=== PATIENT | female | born 1980 | race Caucasian/White ===

== ENCOUNTER 2016-12-18 14:32 | Emergency (ER) | payer OTHER ==
[2016-12-18 14:49] VITALS: BP 112/84
--- NOTE | 2016-12-18 15:11 | UC ---
Palpitation/Dysrhythmia HP - HPI Summary HPI Summary: 36 yo female with a 3 day hx of progressively worsening palpitations Has a skipped beat that makes her take a deep breath in no f/c no URI symptoms no SOB no wt changes no smoking/ETOH/no caffiene - History of Current Complaint Chief Complaint: UCChestPain Stated Complaint: CHEST DISCOMFORT Time Seen by Provider: 12/18/16 14:51 Hx Obtained From: Patient Hx Last Menstrual Period: Thanksgiving Onset/Duration: Sudden Onset, Lasting Minutes - seconds Timing: Intermittent Episodes Lasting: - seconds Severity Initially: Moderate Severity Currently: None Pain Intensity: 0 Pain Scale Used: 0-10 Numeric Character: Skipped Beats Aggravating Factor(s): Nothing Alleviating Factor(s): Nothing - Allergy/Home Medications Allergies/Adverse Reactions: Allergies Allergy/AdvReac Type Severity Reaction Status Date / Time Azithromycin [From Zithromax] Allergy Vomiting Verified 07/02/16 19:42 Erythromycin Allergy Vomiting Verified 07/02/16 19:42 PMH/Surg Hx/FS Hx/Imm Hx Previously Healthy: Yes Endocrine History Of: Denies: Diabetes, Thyroid Disease Cardiovascular History Of: Denies: Cardiac Disorders, Hypertension, Pacemaker/ICD Respiratory History Of: Denies: COPD, Asthma GI/ History Of: Denies: Ulcer - Surgical History Surgical History: Yes Surgery Procedure, Year, and Place: - Family History Known Family History: Positive: Hypertension Negative: Cardiac Disease, Diabetes - Social History Alcohol Use: Rare Substance Use Type: None Smoking Status (MU): Never Smoked Tobacco Have You Smoked in the Last Year: No - Immunization History Hx Tetanus, Diphtheria Vaccination: Yes Vaccination Up to Date: Yes Review of Systems Constitutional: Negative Skin: Negative Eyes: Negative ENT: Negative Respiratory: Negative Cardiovascular: Palpitations Gastrointestinal: Negative Genitourinary: Negative Motor: Negative Neurovascular: Negative Musculoskeletal: Negative Neurological: Negative Psychological: Negative All Other Systems Reviewed And Are Negative: Yes Physical Exam Triage Information Reviewed: Yes Appearance: Well-Appearing, No Pain Distress, Well-Nourished Vital Signs: Initial Vital Signs Temp 97.6 F 12/18/16 14:40 Pulse 93 12/18/16 14:40 Resp 16 12/18/16 14:40 BP 112/84 12/18/16 14:40 Pulse Ox 99 12/18/16 14:40 Vital Signs Reviewed: Yes Eyes: Positive: Conjunctiva Clear ENT: Positive: Hearing grossly normal, Pharynx normal, TMs normal. Negative: Nasal congestion, Nasal drainage, Tonsillar exudate, Trismus, Muffled/hoarse voice Neck: Positive: Supple, Nontender, No Lymphadenopathy Respiratory: Positive: Chest non-tender, Lungs clear, Normal breath sounds, No respiratory distress Cardiovascular: Positive: RRR, No Murmur Abdomen Description: Positive: Nontender, No Organomegaly, Soft. Negative: CVA Tenderness (R), CVA Tenderness (L) Musculoskeletal: Positive: Strength Intact, ROM Intact Neurological: Positive: Alert Psychological Exam: Normal Skin Exam: Normal Diagnostics - EKG Cardiac Rate: NL Cardiac Rhythm: Sinus: Normal Ectopy: None ST Segment: Non-Specific Palpitations Course/Dx - Differential Dx/Diagnosis Provider Diagnoses: palpitations Discharge - Discharge Plan Condition: Stable Disposition: HOME Patient Education Materials: Palpitations (ED) Referrals: Chen Cisneros PA [Primary Care Provider] - 4 Days Additional Instructions: recheck for new or worsening symptoms
--- NOTE | 2016-12-18 15:28 | RAD ---
INDICATION: Palpitations, chest discomfort LEFT upper chest. COMPARISON: None. TECHNIQUE: Dual energy PA and routine lateral views of the chest were obtained. REPORT: Clear lungs and pleural spaces. Negative for pneumothorax. The heart, pulmonary vasculature, and mediastinal contours are unremarkable. Unremarkable osseous structures and soft tissue contours accounting for body habitus. IMPRESSION: No evidence for acute intrathoracic disease.
[2016-12-18 18:48] LABS: Hematocrit 38 % (35-47); Hemoglobin 12.9 g/dl (12.0-16.0); Mean Corpuscular HGB Conc 34 g/dl (31-36); Mean Corpuscular Hemoglobin 30 pg (27-31); Mean Corpuscular Volume 88 fL (80-97); Mean Platelet Volume 8 um3 (7.4-10.4); Red Blood Count 4.38 10^6/ul (4.0-5.4); Red Cell Distribution Width 14 % (10.5-15); White Blood Count 7.5 10^3/ul (3.5-10.8)
[2016-12-18 19:02] LABS: BUN/Creatinine Ratio 23.3 (8-20); Calcium 9.4 mg/dL (8.6-10.3); EGFR African American 115.4 (>60); EGFR Non-African American 89.7 (>60); Potassium 3.6 mmol/L (3.5-5.0)
[2016-12-18 19:07] LABS: TSH (Thyroid Stimulating Horm) 1.53 mcIU/mL (0.34-5.60)
== END 2016-12-18 15:45 | disposition home or self-care (01) ==
LOC: UCEAST 14:32
DX: R00.2 Palpitations (principal); Z88.1 Allergy status to other antibiotic agents
CPT/HCPCS: 36415; 71020; 80048; 84443; 85025; 93005; 99211; G0463

== ENCOUNTER 2017-06-25 20:54 | Emergency (ER) | payer OTHER ==
--- NOTE | 2017-06-25 21:16 | UC ---
Skin Complaint HPI - HPI Summary HPI Summary: 37 year old female presents with complains of rash on the right side of her face and chest after sitting in the sun last night. - History of Current Complaint Time Seen by Provider: 06/25/17 21:12 Stated Complaint: RASH Hx Last Menstrual Period: Thanksgiving - Allergy/Home Medications Allergies/Adverse Reactions: Allergies Allergy/AdvReac Type Severity Reaction Status Date / Time Azithromycin [From Zithromax] Allergy Vomiting Verified 06/25/17 21:20 Erythromycin Allergy Vomiting Verified 06/25/17 21:20 Home Medications: Home Medications Control Pill 1 tab PO DAILY 06/25/17 [History] Review of Systems Constitutional: Negative Skin: Rash Eyes: Negative ENT: Negative Respiratory: Negative Cardiovascular: Negative Gastrointestinal: Negative Genitourinary: Negative Motor: Negative Neurovascular: Negative Musculoskeletal: Negative Neurological: Negative Psychological: Negative All Other Systems Reviewed And Are Negative: Yes PMH/Surg Hx/FS Hx/Imm Hx - Surgical History Surgical History: Yes Surgery Procedure, Year, and Place: - Family History Known Family History: Positive: Hypertension Negative: Cardiac Disease, Diabetes - Social History Alcohol Use: Rare Substance Use Type: None Smoking Status (MU): Never Smoked Tobacco Have You Smoked in the Last Year: No - Immunization History Hx Tetanus, Diphtheria Vaccination: Yes Vaccination Up to Date: Yes Physical Exam Triage Information Reviewed: Yes Eye Exam: Normal ENT Exam: Normal Dental Exam: Normal Neck exam: Normal Neck: Positive: 1 Respiratory Exam: Normal Cardiovascular Exam: Normal Abdominal Exam: Normal Musculoskeletal Exam: Normal Neurological Exam: Normal Psychological Exam: Normal Skin Exam: Normal Skin: Positive: rashes - right side face/chest Course/Dx - Diagnoses Provider Diagnoses: rash. contact dermatitis Discharge - Discharge Plan Condition: Stable Disposition: HOME Prescriptions: Methylprednisolone [Medrol Dosepak 4 MG*] 4 mg PO .SEE SINTIA INSTRUCTION #1 packet Triamcinolone 0.1% CREAM (NF) [Kenalog 0.1% Cream (NF)] 1 applic .SEE ORDER TID #1 tube Patient Education Materials: Acute Rash (ED) Referrals: Chen Cisneros PA [Primary Care Provider] -
[2017-06-25] MEDS ORDERED: predniSONE TAB* 20 MG PO ONE (21:17)
[2017-06-25] MEDS ORDERED: LoraTADine TAB(NF) 10 MG TAB (AUTOSUB to CETIRIZINE) PO ONE (21:17)
== END 2017-06-25 21:27 | disposition home or self-care (01) ==
LOC: UCEAST 20:54
DX: L25.9 Unspecified contact dermatitis, unspecified cause (principal); Z88.1 Allergy status to other antibiotic agents
CPT/HCPCS: 99212; A9270-GY; G0463

== ENCOUNTER 2017-08-10 17:33 | Emergency (ER) | payer OTHER ==
[2017-08-10 17:55] VITALS: BP 151/83
[2017-08-10] MEDS ORDERED: Ondansetron ODT TAB* 4 MG PO ONE (18:57)
--- NOTE | 2017-08-10 18:57 | UC ---
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 - History of Current Complaint Chief Complaint: UCAbdominalPain Stated Complaint: COUGH,COLD,STOMACH PAIN Time Seen by Provider: 08/10/17 18:45 Hx Obtained From: Patient Hx Last Menstrual Period: 07/21/17 ?: No Onset/Duration: Sudden Onset, Lasting Days - 1 Timing: Constant Severity Initially: Mild Severity Currently: Moderate Location: Diffuse Radiates: No Character: Cramping Aggravating Factor(s): Food Alleviating Factor(s): Nothing Associated Signs and Symptoms: Positive: Cough, Nausea, Diarrhea Allergies/Adverse Reactions: Allergies Allergy/AdvReac Type Severity Reaction Status Date / Time Azithromycin [From Zithromax] Allergy Vomiting Verified 08/10/17 17:55 Erythromycin Allergy Vomiting Verified 08/10/17 17:55 Metoprolol Allergy Abdominal Verified 08/10/17 17:55 Pain PMH/Surg Hx/FS Hx/Imm Hx Previously Healthy: Yes - Surgical History Surgical History: Yes Surgery Procedure, Year, and Place: - Family History Known Family History: Positive: Hypertension Negative: Cardiac Disease, Diabetes - Social History Occupation: Employed Full-time Lives: With Family Alcohol Use: Rare Substance Use Type: None Smoking Status (MU): Never Smoked Tobacco Have You Smoked in the Last Year: No - Immunization History Hx Tetanus, Diphtheria Vaccination: Yes Vaccination Up to Date: Yes Review of Systems Constitutional: Negative, Fatigue Skin: Negative Eyes: Negative ENT: Nasal Discharge, Sinus Congestion Respiratory: Cough Cardiovascular: Negative Gastrointestinal: Diarrhea, Nausea Genitourinary: Negative Motor: Negative Neurovascular: Negative Musculoskeletal: Negative Neurological: Negative Psychological: Negative Is Patient Immunocompromised?: No All Other Systems Reviewed And Are Negative: Yes Physical Exam Triage Information Reviewed: Yes Appearance: Well-Nourished, Ill-Appearing - mild, Pain Distress - mild Vital Signs: Initial Vital Signs Temp 98.1 F 08/10/17 17:47 Pulse 100 08/10/17 17:47 Resp 18 08/10/17 17:47 BP 151/83 08/10/17 17:47 Pulse Ox 100 08/10/17 17:47 Vital Signs Reviewed: Yes Eye Exam: Normal Eyes: Positive: Conjunctiva Clear ENT Exam: Normal ENT: Positive: Normal ENT inspection, Hearing grossly normal, Nasal congestion, TMs normal. Negative: Nasal drainage, Tonsillar swelling, Tonsillar exudate, Trismus, Muffled/hoarse voice Neck exam: Normal Neck: Positive: Supple, Nontender Respiratory Exam: Normal Respiratory: Positive: Chest non-tender, Lungs clear, Normal breath sounds, No respiratory distress, No accessory muscle use Cardiovascular Exam: Normal Cardiovascular: Positive: RRR, No Murmur, Pulses Normal, Brisk Capillary Refill Abdominal Exam: Normal Abdomen Description: Positive: No Organomegaly, Soft, Other: - difuse discomfort. Negative: CVA Tenderness (R), CVA Tenderness (L) Bowel Sounds: Positive: Hyperactive Musculoskeletal Exam: Normal Musculoskeletal: Positive: Strength Intact, ROM Intact, No Edema Neurological Exam: Normal Neurological: Positive: Alert, Muscle Tone Normal Psychological Exam: Normal Psychological: Positive: Normal Response To Family Skin Exam: Normal Abd Pain Female Course/Dx - Course Course Of Treatment: clear liquid diet advance slowly, rest follow with pcp for blood pressure recheck or acute illness issues - Differential Dx/Diagnosis Differential Diagnosis: Appendicitis, Gall Bladder Disease, Irritable Bowel Syndrome, Other - illness Provider Diagnoses: viral syndrome, high blood pressure without dx of hypertension Discharge - Discharge Plan Condition: Stable Disposition: HOME Prescriptions: Ondansetron ODT TAB* [Zofran 4 MG Odt TAB*] 4 mg PO Q6H PRN #12 tab.odt PRN Reason: nausea/vomiting Patient Education Materials: Viral Syndrome (ED), Clear Liquid Diet (ED), Upper Respiratory Infection (ED), Acute Nausea and Vomiting (ED), Hypertension ( ED) Forms: *Work Release Referrals: Chen Cisneros PA [Primary Care Provider] - If Needed
== END 2017-08-10 19:18 | disposition home or self-care (01) ==
LOC: UCEAST 17:33
DX: B34.9 Viral infection, unspecified (principal); Z88.8 Allergy status to other drugs, medicaments and biological substances; R03.0 Elevated blood-pressure reading, without diagnosis of hypertension
CPT/HCPCS: 99212; A9270-GY; G0463

== ENCOUNTER 2018-04-03 14:37 | Emergency (ER) | payer OTHER ==
--- OUTSIDE RECORDS SUMMARY | 2018-04-03 14:44 | XMS REPORT ---
:1980 External Reference #:[id number] Author Organization [facility] Address [address], [address] [place] [address] Phone [phone] Care Team Providers Name Role Phone Jaylin Cisneros RPAC Care Team Information Apron Operator Unavailable Jaylin Cisneros RPAC Primary Care Physician Unavailable Payers Type Date Identification Numbers Payment Provider Subscriber Commercial Effective: Policy Number: [facility] Анна Ledezma 2009 [id number] PayID: [id number] [address] [place] [address] Medicaid Policy Number: [id number] Medicaid Анна Ledezma Group Name: 1 1 [address] PayID: [id number] [place] [address] Problems Date Description Provider Status Onset: 03/15/2014 Cervical disc disorder SUSANNE Barrios Active Note: MRI 2013 Onset: 07/21/2013 Palpitations SUSANNE Barrios Active Note: PAC/PVC 2012 Onset: 07/24/2011 Premenstrual tension syndrome SUSANNE Barrios Active Onset: 03/10/2017 Premature ovarian failure SUSANNE Barrios Active Note: noted 2016 Onset: 01/22/2018 Premenstrual dysphoric disorder SUSANNE Barrios Active Onset: 01/22/2018 Iliotibial band friction syndrome SUSANNE Barrios Active Onset: 01/22/2018 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 Onset: 11/07/2003 Contusion of finger Resolved Resolved: 03/06/2016 Onset: 11/07/2003 Contusion of hand Resolved Resolved: 03/06/2016 Family History Date Family Member(s) Problem(s) Comments Father Rheumatoid Arthritis Mother Hypertension Mother Anxiety First Sister PCOS First Sister Anxiety Paternal Grandmother Hypertension Maternal Grandmother Hypertension Maternal Grandmother Anxiety Social History Type Date Description Comments Lives With Son Diet Healthy, Well Balanced Occupation Sales ETOH Use Occasionally consumes alcohol Smoking Patient has never smoked Allergies, Adverse Reactions, Alerts Date Description Reaction Status Severity Comments 01/12/2015 Azithromycin DYSPEPSIA active 12/20/2012 Buspirone Hyperactivity active 12/20/2012 Citalopram Worsens Depression active 12/20/2012 Macrolides And Ketolides Nausea active 08/12/2017 Metoprolol diarrhea active Medications Medication Date Status Form Strength Qnty SIG Indications Ordering Provider Escitalopram 02/24 Active Tablets 5mg 30tab 1/2 tab by Miguel s mouth Cummings, every day M.D. for 10 days then increase to 1 tab po daily Multivitamin Women 10/23 Active Tablets 1 a day Malathi Cummings Ibuprofen 10/23 Active Capsules 200mg as needed Miguel Malathi Cummings Meloxicam 00 Active Tablets 15mg 1 tablet Villagonza /0000 daily. Gordo perez DPM Nissa 07/31 Hx Tablets 0.35mg 28tab 1 tab by Miguel s mouth Cummings, - every day, M.D. 02/09 or progestero ne only ocp Metoprolol 07/03 Hx Tablets 25mg 30tab 1/2 tab by I10 Miguel Succinate ER /2016 ER 24HR s mouth Cummings, - every day M.D. 08/12 Penicillin V 06/26 Hx Tablets 500mg 30tab 1 tab by A38.9 Miguel Potassium s mouth Cummings, - three M.D. 07/07 times a day Lessina 05/21 Hx Tablets 0.1-20mg- 28tab 1 tab by N95.8 mcg s mouth Cummings, - every day M.D. 06/28 No Active 03/25 Hx Unknown Medications /2016 - 03/25 Ortho Tri-Cyclen 03/25 Hx Tablets 0.18/0.21 90tab 1 tab by N95.8 Ventura Lo 5/0.25 s mouth Litvin, - mg-25 mcg every day M.D. 05/21 No Active 02/13 Hx Unknown Medications /2016 - 02/13 Amphetamine-Dextro 02/13 Hx Tablets 5mg 30tab 1 tab by R41.840 Miguel amphetamine s mouth prn Cummings, - M.D. 03/25 No Active 04/11 Hx Unknown Medications - 04/11 Gabapentin 04/11 Hx Capsules 100mg 60cap take 1 to 723.1 Deanna /2014 s 2 capsules Schuster, - by mouth M.D. 02/13 at bedtime for neck pain Cyclobenzaprine Hx Tablets 10mg 90tab 1 by mouth Landen, HCL /0000 s three Deanna, - times a MD 04/11 day as needed Oxycodone/Acetamin Hx Tablets 5-325mg 30tab one tablet Schuster, ophen /0000 s by mouth Deanna, - every 6 MD 04/11 hours needed for pain Reference #: [id number] Methylprednisolone Hx Tablets 4mg start 6 Unknown /0000 tabs on - day one 06/29 decrease by 1 tab each day until gone Triamcinolone Hx Cream 0.1% apply to Unknown Acetonide /0000 irritated areas three times a day as needed. do not use on face or pelvic areas Immunizations CPT Code Status Date Vaccine Reaction Lot # [id number] Given 09/18/2017 Influenza Virus Vaccine received at [facility]/Noti Quadrivalent Iiv4 Split Preser Free Id Vital Signs Date Vital Result Comment 03/05/2018 BP Systolic Sitting Right Arm 124 mmHg BP Diastolic Sitting Right Arm 86 mmHg Heart Rate 82 /min reg Respiratory Rate 15 /min Height 65 inches 5'5" Weight 224.00 lb BMI (Body Mass Index) 37.3 kg/m2 BSA (Body Surface Area) 2.08 m2 [place] body weight in kilograms 57 O2 % BldC Oximetry 98 % ra 01/22/2018 BP Systolic Sitting Right Arm 134 mmHg BP Diastolic Sitting Right Arm 78 mmHg Heart Rate 73 /min Height 65 inches 5'5" Weight 221.00 lb BMI (Body Mass Index) 36.8 kg/m2 BSA (Body Surface Area) 2.06 m2 [place] body weight in kilograms 57 O2 % BldC Oximetry 98 % 10/23/2017 BP Systolic Sitting Right Arm 122 mmHg BP Diastolic Sitting Right Arm 82 mmHg Heart Rate 80 /min Height 65 inches 5'5" Weight 225.00 lb BMI (Body Mass Index) 37.4 kg/m2 BSA (Body Surface Area) 2.08 m2 [place] body weight in kilograms 57 O2 % BldC Oximetry 97 % 07/24/2017 BP Systolic Sitting Right Arm 136 mmHg BP Diastolic Sitting Right Arm 88 mmHg Heart Rate 77 /min Respiratory Rate 18 /min Height 65 inches 5'5" Weight 227.00 lb BMI (Body Mass Index) 37.8 kg/m2 BSA (Body Surface Area) 2.09 m2 [place] body weight in kilograms 57 O2 % BldC Oximetry 97 % 07/03/2017 BP Systolic Sitting Left Arm 140 mmHg repeat 146/98 BP Diastolic Sitting Left Arm 95 mmHg repeat 146/98 Heart Rate 94 /min 98 Respiratory Rate 16 /min Height 65 inches 5'5" Weight 229.38 lb BMI (Body Mass Index) 38.2 kg/m2 BSA (Body Surface Area) 2.10 m2 [place] body weight in kilograms 57 06/26/2017 BP Systolic Sitting Right Arm 140 mmHg BP Diastolic Sitting Right Arm 100 mmHg Body Temperature 99.3 F Heart Rate 91 /min Respiratory Rate 20 /min Height 65 inches 5'5" Weight 227.00 lb BMI (Body Mass Index) 37.8 kg/m2 BSA (Body Surface Area) 2.09 m2 [place] body weight in kilograms 57 O2 % BldC Oximetry 98 % 03/25/2017 BP Systolic 122 mmHg BP Diastolic 70 mmHg Height 65 inches 5'5" Weight 228.00 lb BMI (Body Mass Index) 37.9 kg/m2 BSA (Body Surface Area) 2.09 m2 [place] body weight in kilograms 57 02/13/2017 BP Systolic Sitting Right Arm 128 mmHg BP Diastolic Sitting Right Arm 70 mmHg Height 65 inches 5'5" Weight 226.25 lb BMI (Body Mass Index) 37.6 kg/m2 BSA (Body Surface Area) 2.08 m2 04/11/2015 Height 65 inches 5'5" Weight 217.25 lb BMI (Body Mass Index) 36.1 kg/m2 BSA (Body Surface Area) 2.05 m2 01/12/2015 BP Systolic 126 mmHg BP Diastolic 76 mmHg Weight 218.00 lb 09/29/2014 BP Systolic 132 mmHg BP Diastolic 70 mmHg Height 66 inches 5'6" Weight 219.00 lb 10/26/2013 BP Systolic 122 mmHg BP Diastolic 68 mmHg Height 66 inches 5'6" Weight 204.00 lb 06/30/2013 BP Systolic 130 mmHg BP Diastolic 74 mmHg Height 66 inches 5'6" Weight 200.00 lb 04/28/2013 BP Systolic 118 mmHg BP Diastolic 70 mmHg Height 66 inches 5'6" Weight 200.00 lb 12/20/2012 BP Systolic 130 mmHg BP Diastolic 70 mmHg Height 66 inches 5'6" Weight 214.00 lb 07/24/2011 BP Systolic 110 mmHg BP Diastolic 70 mmHg Height 66 inches 5'6" Weight 197.00 lb 07/18/2011 BP Systolic 112 mmHg BP Diastolic 70 mmHg Height 65 inches 5'5" Weight 198.00 lb Results Test Date Test Result H/L Range Note Laboratory test 06/26/2017 Throat Strep Screen NO BETA STREPTOC 1, 2 finding <SEE NOTE> Laboratory test 02/27/2017 Testosterone 33.59 ng/dL 8-60 finding Estradiol <40 pg/mL 3 Follicle Stimulating Hormone 64.3 mIU/mL 4 Estradiol, Confirmatory, S 11 pg/mL 5 Laboratory test finding 02/13/2017 Prolactin 7.9 ng/mL 6, 7 Glycohemoglobin A1c 02/13/2017 Glycohemoglobin (A1c) 5.5 % 4.2-6.3 6, 8 eAG 111 mg/dL 6 Comprehensive Metabolic Panel 02/13/2017 Glucose 83 mg/dL 74-106 6 BUN 15 mg/dL 7-18 6 Creatinine 0.8 mg/dL 0.6-1.3 6 Glom Filtration Rate, Estimate >60 mL/min >60 6 If >60 mL/min >60 6, 9 BUN/Creat 18.7 ratio 6 Sodium 141 mmol/L 136-145 6 Potassium 4.0 mmol/L 3.5-5.1 6 Chloride 107 mmol/L 98-107 6 Carbon Dioxide 26 mmol/L 21-32 6 Anion Gap 8 mEq/L 8-16 6 Calcium 9.0 mg/dL 8.5-10.1 6 Total Protein 8.1 g/dL 6.4-8.2 6 Albumin 4.0 g/dL 3.4-5.0 6 Globulin 4.1 g/dL 1.9-4.3 6 Alb/Glob 1.0 ratio 6 Bilirubin,Total 0.9 mg/dL 0.2-1.0 6 Sgot/Ast 21 U/L 15-37 6 SGPT/Alt 33 U/L 12-78 6 Alkaline Phosphatase 84 U/L 45-117 6 Laboratory test finding 02/13/2017 FSH 62.9 mIU/mL 6, 10 Basic Metabolic Panel 12/18/2016 Sodium 140 mmol/L 133-145 Potassium 3.6 mmol/L 3.5-5.0 Chloride 105 mmol/L 101-111 Co2 Carbon Dioxide 28 mmol/L 22-32 Anion Gap 7 mmol/L 2-11 Glucose 104 mg/dL High 70-100 Blood Urea Nitrogen 17 mg/dL 6-24 Creatinine 0.73 mg/dL 0.51-0.95 BUN/Creatinine Ratio 23.3 High 8-20 Calcium 9.4 mg/dL 8.6-10.3 Egfr Non- 89.7 >60 Egfr 115.4 >60 11 Laboratory test finding 12/18/2016 TSH (Thyroid Stimulating 1.53 mcIU/mL 0.34-5.60 Horm) CBC Auto Diff 12/18/2016 White Blood Count 7.5 10^3/uL 3.5-10.8 Red Blood Count 4.38 10^6/uL 4.0-5.4 Hemoglobin 12.9 g/dL 12.0-16.0 Hematocrit 38 % 35-47 Mean Corpuscular Volume 88 fL 80-97 Mean Corpuscular Hemoglobin 30 pg 27-31 Mean Corpuscular HGB Conc 34 g/dL 31-36 Red Cell Distribution Width 14 % 10.5-15 Platelet Count 260 10^3/uL 150-450 Mean Platelet Volume 8 um3 7.4-10.4 Abs Neutrophils 4.5 10^3/uL 1.5-7.7 Abs Lymphocytes 2.2 10^3/uL 1.0-4.8 Abs Monocytes 0.6 10^3/uL 0-0.8 Abs Eosinophils 0.1 10^3/uL 0-0.6 Abs Basophils 0 10^3/uL 0-0.2 Abs Nucleated RBC 0.01 10^3/uL Granulocyte % 59.7 % 38-83 Lymphocyte % 29.5 % 25-47 Monocyte % 8.5 % 1-9 Eosinophil % 1.7 % 0-6 Basophil % 0.6 % 0-2 Nucleated Red Blood Cells % 0.1 Laboratory test 09/19/2015 Throat Beta Strep SEE RESULT BELOW 12 finding Culture Laboratory test 04/11/2015 TSH Reflex FT4 1.34 uIU/mL 0.36-3.74 13 finding and/or FT3 C-Reactive Protein,Quant < 2.9 mg/L <3.0 Sedimentation Rate 10 mm/hr 0-20 CBS W/Automated Diff 04/11/2015 White Blood Count 6.7 K/uL 3.1-10.7 Red Blood Count 4.12 M/uL 3.90-5.40 Hemoglobin 12.9 gm/dL 11.6-15.8 Hematocrit 38.1 % 36.0-46.1 Mean Cell Volume 92.5 fl 80.9-99.0 Mean Corpuscular HGB 31.3 pg 25.9-32.7 Mean Corpuscular HGB Conc 33.9 g/dL 30.8-34.3 Platelet Count 323 K/uL 155-360 Red Cell Distri Width SD 44.1 fl 3-47 Red Cell Distri Width %CV 13.2 % 11.7-14.4 Mean Platelet Volume 10.2 fL 8.9-12.4 Neut% 51.5 % 40.4-72.8 Lymph % 37.7 % 17.0-46.1 Graham % 9.1 % 4.3-13.2 Eo% 1.3 % 0.0-6.6 Bas% 0.4 % 0.0-1.1 Neut# 3.45 K/uL 1.0-7.0 Lymph # 2.53 K/uL 1.8-7.0 Graham # 0.61 K/uL 0.3-0.9 Eos # 0.09 K/uL 0.0-0.5 Baso # 0.03 K/uL 0.0-0.1 Laboratory test finding 02/08/2015 C. difficile Amplified Dna (See Note) 14, 15 O P: Giardia/Cryptospor Screen (See Note) 14, 16 Stool Culture (See Note) 14, 17 Stool For Blood 02/08/2015 Stool Occult Blood (See Note) 14, 18 Throat-Beta Strept 10/21/2013 Throat Beta Strep (See Note) 19 Culture Laboratory test finding 06/28/2013 Magnesium 1.9 mg/dL 1.7-2.6 TSH (Thyroid Stimulating Horm) 2.38 miu/mL 0.34-5.60 Troponin I 0 ng/mL 0-0.06 20 CBC Auto Diff 06/28/2013 Abs Basophils 0.1 10^3/uL 0-0.2 Abs Eosinophils 0.1 10^3/uL 0-0.6 Abs Lymphocytes 2.6 10^3/uL 1.0-4.8 Abs Monocytes 0.7 10^3/uL 0-0.8 Abs Neutrophils 4.5 10^3/uL 1.5-7.7 Abs Nucleated RBC 0 10^3/uL Basophil % 1.0 % 0-2 Eosinophil % 1.3 % 0-6 Granulocyte % 55.5 % 38-83 Hematocrit 39 % 35-47 Hemoglobin 12.5 g/dL 12.0-16.0 Lymphocyte % 32.9 % 25-47 Mean Corpuscular HGB Conc 32 g/dL 31-36 Mean Corpuscular Hemoglobin 30 pg 27-31 Mean Corpuscular Volume 93 fL 80-97 Mean Platelet Volume 8 um3 7.4-10.4 Monocyte % 9.3 % High 1-9 Nucleated Red Blood Cells % 0 Platelet Count 267 10^3/uL 150-450 Red Blood Count 4.13 10^6/uL 4.0-5.4 Red Cell Distribution Width 13 % 10.5-15 White Blood Count 8.0 10^3/uL 4.8-10.8 Comp Metabolic Panel 06/28/2013 Albumin 4.1 g/dL 3.6-5.4 Albumin/Globulin Ratio 1.3 1-3 Alkaline Phosphatase 54 U/L 30-110 Alt 15 U/L 14-54 Anion Gap 7.0 mmol/L 2-11 Ast 24 U/L 12-42 BUN/Creatinine Ratio 21.3 High 8-20 Blood Urea Nitrogen 17 mg/dL 6-24 Calcium 9.3 mg/dL 8.1-9.9 Chloride 106 mmol/L 101-111 Co2 Carbon Dioxide 25.0 mmol/L 22-32 Creatinine 0.80 mg/dL 0.50-1.40 Egfr 105.6 >60 21 Egfr Non- 82.1 >60 Globulin 3.2 g/dL 2-4 Glucose 92 mg/dL 70-100 Potassium 3.5 mmol/L 3.5-5.0 Sodium 138 mmol/L 133-145 Total Bilirubin 1.0 mg/dL 0.4-1.5 Total Protein 7.3 g/dL 6.2-8.1 Laboratory test finding 12/20/2012 Cytology Pap See Note 22 1 A38.9 2 NO BETA STREPTOCOCCI ISOLATED 3 Estradiols <40 pg/mL are sent to a reference lab for low range testing. Postmenopausal Females < 20 Ovulating females: by day in cycle relative to LH Peak Follicular phase - 12 10-50 - 4 60-200 Mid-cycle - 1 120-375 Luteal phase + 2 50-155 + 6 60-260 + 12 15-115 4 Normally menstruating females - Follicular phase 3 - 9 - Mid-cycle peak 4 - 23 - Luteal phase 1 - 6 Postmenopausal females 16 - 114 5 REFERENCE VALUE Premenopausal: 15-350 (E2 levels vary widely through the menstrual cycle.) Postmenopausal: <10 ADDITIONAL INFORMATION This test was developed and its performance characteristics determined by [facility] in a manner consistent with CLIA requirements. This test has not been cleared or approved by the U.S. Food and Drug Administration. Test Performed by: [facility] [employer] - [address] [address] 6 Z12.4 7 Non- ..... 2.2-30.3 ng/mL ......... 8.1-347.6 ng/mL Post-Menopausal .. 0.7-31.5 ng/mL 8 Elevated levels of HbA1c suggest the need for more aggressive treatment of glycemia. The [place] [employer] recommends that a primary goal of therapy should be a HbA1c of <7% and that physicians should re-evaluate the treatment regimen in patients with HbA1c values consistently >8%. 9 Note: Persistent reduction for 3 months or more in an eGFR <60 mL/min/1.73 m2 defines CKD. Patients with eGFR values >/=60 mL/min/1.73 m2 may also have CKD if evidence of persistent proteinuria is present. The original MDRD equation for estimated GFR is not valid for patients less than 18 years of age. Additional information may be found at www.kdoqi.org. 10 NORMALLY MENSTRUATING FEMALES: Follicular Phase:............... 2.3-12.6 mIU/mL Mid-Cycle Peak:................. 5.2-17.5 mIU/mL Luteal Phase:................... 1.7-9.5 mIU/mL POSTMENOPAUSAL FEMALES: On menopausal hormone therapy (MHT)... 5.9-72.8 mIU/mL Not on MHT ........................... 0.7-10.8 mIU/mL 11 Because ethnic data is not always readily available, this report includes an eGFR for both -Americans and non- Americans. The National Kidney Disease Education Program (NKDEP) does not endorse the use of the MDRD equation for patients that are not between the ages of 18 and 70, are , have extremes of body size, muscle mass, or nutritional status, or are non- or non-. According to the National Kidney Foundation, irrespective of diagnosis, the stage of the disease is based on the level of kidney function: Stage Description GFR(mL/min/1.73 m(2)) 1 Kidney damage with normal or decreased GFR 90 2 Kidney damage with mild decrease in GFR 60-89 3 Moderate decrease in GFR 30-59 4 Severe decrease in GFR 15-29 5 Kidney failure <15 (or dialysis) 12 SEE RESULT BELOW Name: АННА LEDEZMA : [address]: Arnulfo Fernandes MD Acct: [id number] Unit: [id number] AGE: 35 Location: [facility] Re09/19/15 SEX: F Status: DEP ER SPEC: [id number] IBIS: 09/19/15-[address]: Tomas CESAR REQ: [id number] RECD: 09/20/15 STATUS: JOSE DE JESUS DELGADO DR: Arnulfo CESAR _ SOURCE: THROAT SPDESC: ORDERED: Throat Beta Str Procedure Result Verified Site Throat Beta Strep Culture Final 09/22/15- 0815 ML Negative For Group A Beta Streptococcus * ML - MAIN LAB ([facility]) . END OF REPORT * ML=Testing performed at Main Lab DEPARTMENT OF PATHOLOGY, [address] [place] [address] Reese Wyman M.D. Director [facility] # [id number] QUERY: Reflex add FT3? Y QUERY: Reflex add FT4? Y 14 NO PLAIN CUP RECEIVED UNABLE TO DO HEMOCCULT, LACTOFERRIN AND STOOL DESCRIPTION NO PLAIN CUP RECEIVED UNABLE TO DO HEMOCCULT, LACTOFERRIN AND STOOL DESCRIPTION Verbal to [id number] NO PLAIN CUP RECEIVED UNABLE TO DO HEMOCCULT, LACTOFERRIN AND STOOL DESCRIPTION Verbal to [id number] NO PLAIN CUP RECEIVED UNABLE TO DO HEMOCCULT, LACTOFERRIN AND STOOL DESCRIPTION Verbal to [id number] RUN DATE: 02/09/15 [facility] LAB LIVE PAGE 1 RUN TIME: [address] [place] [address] Specimen Inquiry ----- Name: АННА LEDEZMA : [address]: Laurie Claros NP Acct: [id number] Unit: [id number] AGE: 35 Location: [facility] Re02/08/15 SEX: F Status: REG REF ----- SPEC: [id number] IBIS: 02/08/15-[address] [facility] DR: Sujey Cheng MD REQ: [id number] RECD: 02/08/15-151 STATUS: RES OTHR DR: Jaylin Cisneros PA _ SOURCE: STOOL SPDESC: ORDERED: Hemoccult, Stool Culture, Fecal Lactoferr, C. diff Amp DNA, O P: Baldo/Chucho COMMENTS: NO PLAIN CUP RECEIVED UNABLE TO DO HEMOCCULT, LACTOFERRIN AND STOOL DESCRIPTION Verbal to RERE by [id number] at 1527 on . Results read back accurately. ----- Procedure Result Verified Site ----- Stool Culture PENDING Stool Specimen Description Final 02/08/15- 1524 ML Test not performed Shiga Toxin 1 2 Final 02/09/15-1143 ML Organism 1 Negative Shiga Toxin 1 2 Immunochromatographic Assay C. difficile Amplified DNA Final 02/09/15-1448 ML Organism 1 Neg: No C. difficile detected Assay tests for toxigenic C. difficile with Pathogen Locus (PALOC) TEST LIMITATIONS: Assay does not distinguish between viable and nonviable organisms. Test results are to be used in conjunction with information available from the patient clinical evaluation and other diagnostic procedures. Two distinct groups have been identified that can harbor C. difficile asymptomatically at very high rates. Colonization at rates CONTINUED ON NEXT PAGE * ML=Testing performed at Main Lab DEPARTMENT OF PATHOLOGY, [facility] [address] [place], [place] [address] Reese Wyman M.D. Director [facility] # [id number] RUN DATE: 02/09/15 [facility] LAB LIVE PAGE 2 RUN TIME: 1448 [facility] [address] [place], [place] [address] Specimen Inquiry ----- Patient: АННА LEDEZMA Sarai [id number] (Continued) ----- Specimen: [id number] Collected: 02/08/15-1300 Received: 02/08/15-1517 (Continued) ----- Procedure Result Verified Site ----- C. difficile Amplified DNA Final (continued) 02/09/15-1448 up to 50% and higher have been reported in infants and rates up to 32% in cystic fibrosis patients. Fecal Lactoferrin (Stool WBC) Final 02/08/15-1524 ML Test not performed Stool Occult Blood Final 02/08/15-1524 ML Test not performed O P: Giardia/Cryptospor Screen Final 02/09/15-1400 ML Organism 1 Neg Cryptosporidium/Giardia Giardia and cryptosporidium antigen testing performed by enzyme immunoassay. If patient is immunocompromised or has traveled to or is from a developing country, a full ova and parasite exam with microscopic (OPMIC) is recommended. All samples will be held one month in case full ova and parasite testing is requested. Contact the Microbiology Department at [phone]. TEST LIMITATIONS: As with all diagnostic procedures, the results obtained should be used in conjunction with other clinical information available the physician, including confirmation by another method. Negative results can occur in samples containing antigen below lower limits of detection of the assay. One negative specimen does not rule out the possibility of a parasitic infection. To improve detection it is recommended that three specimens be collected on separate days over a period of not more than seven days. The use of colonic washes, aspirates or other diluted sample types has not been established and could affect the performance of the assay. Stool samples contaminated with an oily or particulate base (eg. Barium, mineral oil etc.) could interfere with the test and are not recommended. ----- * ML - MAIN LAB ([facility]) . END OF REPORT * ML=Testing performed at Main Lab DEPARTMENT OF PATHOLOGY, [facility] [address] [place], [place] [address] Reese Wyman M.D. Director [facility] # [id number] RUN DATE: 02/09/15 [facility] LAB LIVE PAGE 1 RUN TIME: 1401 [facility] [place], [place] [address] Specimen Inquiry ----- Name: АННА LEDEZMA Sarai : [address]: Laurie Claros NP Acct: [id number] Unit: [id number] AGE: 35 Location: [facility] Re02/08/15 SEX: F Status: REG REF ----- SPEC: [id number] IBIS: 02/08/15-[address]: Sujey Cheng MD REQ: [id number] RECD: 02/08/15-151 STATUS: RES OTHR DR: Jalyin Cisneros PA _ SOURCE: STOOL SPDESC: ORDERED: Hemoccult, Stool Culture, Fecal Lactoferr, C. diff Amp DNA, O P: Giar/Cr COMMENTS: NO PLAIN CUP RECEIVED UNABLE TO DO HEMOCCULT, LACTOFERRIN AND STOOL DESCRIPTION Verbal to OLLIE/HAIELY by [id number] at 1527 on . Results read back accurately. ----- Procedure Result Verified Site ----- Stool Culture PENDING Stool Specimen Description Final 02/08/15- 1524 ML Test not performed Shiga Toxin 1 2 Final 02/09/15-1143 ML Organism 1 Negative Shiga Toxin 1 2 Immunochromatographic Assay C. difficile Amplified DNA PENDING Fecal Lactoferrin (Stool WBC) Final 02/08/15-1524 ML Test not performed Stool Occult Blood Final 02/08/15-1524 ML Test not performed O P: Giardia/ Cryptospor Screen Final 02/09/15-1400 ML Organism 1 Neg Cryptosporidium/Giardia CONTINUED ON NEXT PAGE * ML=Testing performed at Main Lab DEPARTMENT OF PATHOLOGY, [facility] [address] [place], [place] [address] Reese Wyman M.D. Director [facility] # [id number] RUN DATE: 02/09/15 [facility] LAB LIVE PAGE 2 RUN TIME: 1401 [facility] [place], [place] [address] Specimen Inquiry ----- Patient: АННА LEDEZMA [id number] (Continued) ----- Specimen: [id number] Collected: 02/08/15-1299 Received: 02/08/15-1516 (Continued) ----- Procedure Result Verified Site ----- O P: Giardia/Cryptospor Screen Final (continued) 02/09/15-1400 Giardia and cryptosporidium antigen testing performed by enzyme immunoassay. If patient is immunocompromised or has traveled to or is from a developing country, a full ova and parasite exam with microscopic (OPMIC) is recommended. All samples will be held one month in case full ova and parasite testing is requested. Contact the Microbiology Department at [phone]. TEST LIMITATIONS: As with all diagnostic procedures, the results obtained should be used in conjunction with other clinical information available the physician, including confirmation by another method. Negative results can occur in samples containing antigen below lower limits of detection of the assay. One negative specimen does not rule out the possibility of a parasitic infection. To improve detection it is recommended that three specimens be collected on separate days over a period of not more than seven days. The use of colonic washes, aspirates or other diluted sample types has not been established and could affect the performance of the assay. Stool samples contaminated with an oily or particulate base (eg. Barium, mineral oil etc.) could interfere with the test and are not recommended. ----- * ML - [facility] ([facility]) . END OF REPORT * ML=Testing performed at Main Lab DEPARTMENT OF PATHOLOGY, [facility] [address] [place] [address] Reese Wyman M.D. Director [facility] # [id number] 17 RUN DATE: 02/10/15 [facility] LAB LIVE PAGE 1 RUN TIME: 08 [facility] [place], [place] [address] Specimen Inquiry ----- Name: SHAW LEDEZMASA Moon : [address]: Laurie Claros NP Acct: [id number] Unit: [id number] AGE: 35 [facility]: [facility] [facility] Re[facility] SEX: F Status: REG REF ----- SPEC: [id number] IBIS: 02/08/15-[address]: Sujey Cheng MD REQ: [id number] RECD: 02/08/15 STATUS: JOSE DE JESUS DELGADO DR: Jaylin Cisneros PA _ SOURCE: STOOL SPDESC: ORDERED: Hemoccult, Stool Culture, Fecal Lactoferr, C. diff Amp DNA, O P: Giar/Cr COMMENTS: NO PLAIN CUP RECEIVED UNABLE TO DO HEMOCCULT, LACTOFERRIN AND STOOL DESCRIPTION Verbal to OLLIE/HAILEY by [id number] at 1527 on . Results read back accurately. ----- Procedure Result Verified Site ----- Stool Culture Final 02/10/15-0857 ML Result No enteric pathogens isolated Testing for Salmonella, Shigella, Aeromonas, Plesiomonas, Yersinia and Campylobacter are included in a Stool Culture. Vibrio spp not routinely tested for in a stool culture. If testing is desired, please request specifically when placing test order. Sensitivities not routinely performed on stool isolates, as antibiotics may prolong the carriage rate of bacteria. Please contact the microbiology lab if sensitivities are required. Stool Specimen Description Final 02/08/15-1524 ML Test not performed Shiga Toxin 1 2 Final 02/09/15-1143 ML Organism 1 Negative Shiga Toxin 1 2 CONTINUED ON NEXT PAGE * ML=Testing performed at Main Lab DEPARTMENT OF PATHOLOGY, [address] [place] [id number] Reese Wyman M.D. Director [facility] # [id number] RUN DATE: 02/10/15 [facility] LAB LIVE PAGE 2 RUN TIME: [address] [place], [place] [address] Specimen Inquiry ----- Patient: АННА LEDEZMA Sarai [id number] (Continued) ----- Specimen: [id number] Collected: 02/08/15-1299 Received: 02/08/15-1517 (Continued) ----- Procedure Result Verified Site ----- Shiga Toxin 1 2 Final (continued) 02/09/15-1143 Immunochromatographic Assay C. difficile Amplified DNA Final 02/09/15-1448 ML Organism 1 Neg: No C. difficile detected Assay tests for toxigenic C. difficile with Pathogen Locus (PALOC) TEST LIMITATIONS: Assay does not distinguish between viable and nonviable organisms. Test results are to be used in conjunction with information available from the patient clinical evaluation and other diagnostic procedures. Two distinct groups have been identified that can harbor C. difficile asymptomatically at very high rates. Colonization at rates up to 50% and higher have been reported in infants and rates up to 32% in cystic fibrosis patients. Fecal Lactoferrin ( Stool WBC) Final 02/08/15-1524 ML Test not performed Stool Occult Blood Final 02/08/15-1524 ML Test not performed O P: Giardia/Cryptospor Screen Final 02/09/15-1400 ML Organism 1 Neg Cryptosporidium/Giardia Giardia and cryptosporidium antigen testing performed by enzyme immunoassay. If patient is immunocompromised or has traveled to or is from a developing country, a full ova and parasite exam with microscopic (OPMIC) is recommended. All samples will be held one month in case full ova and parasite testing is requested. Contact the Microbiology Department CONTINUED ON NEXT PAGE * ML=Testing performed at Main Lab DEPARTMENT OF PATHOLOGY, [facility] [address] [place], [place] [address] Reese Wmyan M.D. Director [facility] # [id number] RUN DATE: 02/10/15 [facility] LAB LIVE PAGE 3 RUN TIME: 856 [facility] [place], [place] [address] Specimen Inquiry ----- Patient: MAYITOАННА Moon [id number] (Continued) ----- Specimen: [id number] Collected: 02/08/15-1299 Received: 02/08/15-1516 (Continued) ----- Procedure Result Verified Site ----- O P: Giardia/Cryptospor Screen Final (continued) 02/09/15-1400 at [phone]. TEST LIMITATIONS: As with all diagnostic procedures, the results obtained should be used in conjunction with other clinical information available the physician, including confirmation by another method. Negative results can occur in samples containing antigen below lower limits of detection of the assay. One negative specimen does not rule out the possibility of a parasitic infection. To improve detection it is recommended that three specimens be collected on separate days over a period of not more than seven days. The use of colonic washes, aspirates or other diluted sample types has not been established and could affect the performance of the assay. Stool samples contaminated with an oily or particulate base (eg. Barium, mineral oil etc.) could interfere with the test and are not recommended. ----- * ML - MAIN LAB ([facility]) . END OF REPORT * ML=Testing performed at Main Lab DEPARTMENT OF PATHOLOGY, [facility] [address] [place], [place] [address] Reese Wyman M.D. Director [facility] # [id number] RUN DATE: 02/09/15 [facility] LAB LIVE PAGE 1 RUN TIME: 815 [facility] [place], [place] [address] Specimen Inquiry ----- Name: АННА LEDEZMA Sarai : [address]: Laurie Claros NP Acct: [id number] Unit: [id number] AGE: 35 Location: [facility] Re02/08/15 SEX: F Status: REG REF ----- SPEC: [id number] IBIS: 02/08/15-[address]: Sujey Cheng MD REQ: [id number] RECD: 02/08/15-333 STATUS: RES [facility] DR: Jaylin Cisneros PA _ SOURCE: STOOL SPDESC: ORDERED: Hemoccult, Stool Culture, Fecal Lactoferr, C. diff Amp DNA, O P: Baldo/Chucho COMMENTS: NO PLAIN CUP RECEIVED UNABLE TO DO HEMOCCULT, LACTOFERRIN AND STOOL DESCRIPTION Verbal to OLLIE/HAILEY by [id number] at 1527 on . Results read back accurately. ----- Procedure Result Verified Site ----- Stool Culture PENDING Stool Specimen Description Final 02/08/15- 1524 ML Test not performed Shiga Toxin 1 2 PENDING C. difficile Amplified DNA PENDING Fecal Lactoferrin (Stool WBC) Final 02/08/15-1524 ML Test not performed Stool Occult Blood Final 02/08/15-1524 ML Test not performed O P: Giardia/ Cryptospor Screen PENDING ----- * ML - MAIN LAB ([facility]) . END OF REPORT * ML=Testing performed at Main Lab DEPARTMENT OF PATHOLOGY, [address] [place] [address] Reese Wyman M.D. Director [facility] # [id number] RUN DATE: 10/23/13 [facility] LAB LIVE PAGE 1 RUN TIME: [address] [place] [address] Specimen Inquiry ----- Name: АННА LEDEZMA : [address]: Sujey Cheng MD Acct: [id number] Unit: [id number] AGE: 33 Location: [facility] Re10/21/13 SEX: F Status: DEP ER ----- SPEC: [id number] IBIS: 10/21/13-[address] [facility] DR: Sujey Cheng MD REQ: [id number] RECD: 10/21/13 STATUS: JOSE DE JESUS DELGADO DR: JENNIFER CESAR _ SOURCE: THROAT SPDESC: ORDERED: Throat Beta Str ----- Procedure Result Verified Site ----- Throat Beta Strep Culture Final 10/23/13-0857 ML Negative For Group A Beta Streptococcus ----- END OF REPORT * ML=Testing performed at Main Lab DEPARTMENT OF PATHOLOGY, [address] [place] [address] Reese Wyman M.D. Director [facility] Permit # [id number] Reference Range and Interpretation: TnI (ng/mL) Interpretation Less Than 0.06 ng/mL Not supportive of diagnosis of TN 0.06 - 0.50 ng/mL Indeterminate: suggest serial studies if clinically indicated. Greater than 0.5 ng/mL Consistent with diagnosis of TN 21 Because ethnic data is not always readily available, this report includes an eGFR for both -Americans and non- Americans. The National Kidney Disease Education Program (NKDEP) does not endorse the use of the MDRD equation for patients that are not between the ages of 18 and 70, are , have extremes of body size, muscle mass, or nutritional status, or are non- or non-. According to the National Kidney Foundation, irrespective of diagnosis, the stage of the disease is based on the level of kidney function: Stage Description GFR(mL/min/1.73 m(2)) 1 Kidney damage with normal or decreased GFR 90 2 Kidney damage with mild decrease in GFR 60- 89 3 Moderate decrease in GFR 30-59 4 Severe decrease in GFR 15-29 5 Kidney failure <15 (or dialysis) 22 Cytology Laboratory [address] [place] [address] [place] [address] CYTOLOGY REPORT Name: Анна Ledezma Accession # : [id number] : 1980 (Age: 32) Sex: F Location: [facility] Rec. # Date Collected: 12/20/2012 Billing #: [id number] Date Received: 12/20/2012 Physician(s): JAYLIN OGLESBY Source of Specimen: ENDOCERVICAL/ ECTOCERVICAL THIN PREP Clinical Information: Date of Last Menstrual Period: 12/03/12 Menstrual History: Regular Specimen Adequacy: SATISFACTORY FOR EVALUATION. NO ENDOCERVICAL/TRANSFORMATION ZONE. General Categorization: NEGATIVE FOR INTRAEPITHELIAL LESION OR MALIGNANCY. dcl Electronic Signature Vianney Sanchez, [place] (ASCP) Reported: 12/21/2012 Also seen by :AISSATOU Chavez ( ASCP) Cytology Outreach [facility] ICD-9 Code(s) V72.31 Procedures Description No Information Encounters Type Date Location Provider CPT E/M Dx Office Visit 01/22/2018 9:00a Primary Care Office Jaylin Cisneros [address] E28.9 [facility] M76.31 F32.81 Office Visit 10/23/2017 1:45p Primary Care Office Jaylin Eatonjo [address]647 E28.310 [facility] Office Visit 07/24/2017 2:15p Primary Care Office Jaylin Cisneros [address]55[address] I10 [facility] M79.673 Office Visit 07/03/2017 2:00p Primary Care Office Jaylin Amelia [facility] [address]74[address] I10 Office Visit 06/26/2017 11:15a Primary Care Office Jaylin Cisneros [facility] [address] A38.9 R03.0 Office Visit 03/25/2017 1:15p Endocrinology Ventura Bates M.D. 67009 E66.9 N95.8 Office Visit 02/13/2017 1:00p Primary Care Office Jaylin Amelia 09858 Z01.411 [facility] Z12.72 R41.840 N91.5 Z32.02 Office Visit 04/11/2015 11:30a Family Medicine Jaylin Cisneros [facility] [address] 723.1 784.0 704.00 727.1 626.6 Plan of Care Future Appointment(s):05/14/2018 2:45 pm - SUSANNE Barrios at [facility] Ooywvx8603/05/2018 - Jaylin Cisneros RPACF41.9 Anxiety disorder, unspecifiedComments:Current tx: Escitalopram 5mg dailyFollow up:1 month
[2018-04-03 14:51] VITALS: BP 128/86
--- NOTE | 2018-04-03 15:00 | UC ---
Throat Pain/Nasal Aaron HPI - HPI Summary HPI Summary: Zore throat began last night some body aches, no fevers, chills or cough - History of Current Complaint Chief Complaint: UCGeneralIllness Stated Complaint: SORE THROAT Time Seen by Provider: 04/03/18 14:54 Hx Obtained From: Patient Hx Last Menstrual Period: end february ?: No Onset/Duration: Sudden Onset Severity: Moderate Pain Intensity: 7 Cough: None Associated Signs & Symptoms: Positive: Negative - Allergies/Home Medications Allergies/Adverse Reactions: Allergies Allergy/AdvReac Type Severity Reaction Status Date / Time MS Azithromycin Allergy Vomiting Verified 08/10/17 17:55 [From Zithromax] MS Erythromycin Allergy Vomiting Verified 08/10/17 17:55 [Erythromycin] MS Metoprolol [Metoprolol] Allergy Abdominal Verified 08/10/17 17:55 Pain Home Medications: Home Medications Escitalopram Oxalate [Lexapro] 5 mg PO 04/03/18 [History] PMH/Surg Hx/FS Hx/Imm Hx Previously Healthy: No Psychological History: Anxiety - Surgical History Surgical History: Yes Surgery Procedure, Year, and Place: - Family History Known Family History: Positive: Hypertension Negative: Cardiac Disease, Diabetes - Social History Occupation: Employed Full-time Lives: With Family Alcohol Use: Rare Substance Use Type: None Smoking Status (MU): Never Smoked Tobacco Have You Smoked in the Last Year: No - Immunization History Hx Tetanus, Diphtheria Vaccination: Yes Vaccination Up to Date: Yes Review of Systems Constitutional: Negative Skin: Negative Eyes: Negative ENT: Sore Throat Respiratory: Negative Cardiovascular: Negative Gastrointestinal: Negative Genitourinary: Negative Motor: Negative Neurovascular: Negative Musculoskeletal: Negative Neurological: Negative Psychological: Negative Is Patient Immunocompromised?: No All Other Systems Reviewed And Are Negative: Yes Physical Exam Triage Information Reviewed: Yes Appearance: Well-Appearing, No Pain Distress, Well-Nourished Vital Signs: Initial Vital Signs Temp 99.1 F 04/03/18 14:45 Pulse 84 04/03/18 14:45 Resp 16 04/03/18 14:45 BP 128/86 04/03/18 14:45 Pulse Ox 97 04/03/18 14:45 Vital Signs Reviewed: Yes Eye Exam: Normal Eyes: Positive: Conjunctiva Clear ENT Exam: Normal ENT: Positive: Normal ENT inspection, Hearing grossly normal, Pharynx normal, Nasal congestion, TMs normal, Uvula midline. Negative: Tonsillar swelling, Tonsillar exudate, Trismus, Muffled voice, Hoarse voice, Sinus tenderness Dental Exam: Normal Neck exam: Normal Neck: Positive: Supple, Nontender, No Lymphadenopathy Respiratory Exam: Normal Respiratory: Positive: Chest non-tender, Lungs clear, Normal breath sounds, No respiratory distress, No accessory muscle use Cardiovascular Exam: Normal Cardiovascular: Positive: RRR, No Murmur, Pulses Normal, Brisk Capillary Refill Musculoskeletal Exam: Normal Musculoskeletal: Positive: Strength Intact, ROM Intact, No Edema Neurological Exam: Normal Neurological: Positive: Alert, Muscle Tone Normal Psychological Exam: Normal Psychological: Positive: Normal Response To Family, Age Appropriate Behavior - in Skin Exam: Normal Diagnostics - Laboratory Diagnostic Studies Completed/Ordered: RST (-) Throat Pain/Nasal Course/Dx - Course Assessment/Plan: tylenol, ibuprofen, throat sprays/kapil follow with pcp prn - Differential Dx/Diagnosis Provider Diagnoses: viral pharyngitis Discharge - Sign-Out/Discharge Documenting (check all that apply): Discharge/Admit/Transfer - Discharge Plan Condition: Stable Disposition: HOME Patient Education Materials: Phenol (By mouth), Pharyngitis (ED), Viral Syndrome (ED) Referrals: Chen Cisneros PA [Primary Care Provider] - If Needed - Billing Disposition and Condition Condition: STABLE Disposition: HOME
== END 2018-04-03 15:10 | disposition home or self-care (01) ==
LOC: UCEAST 14:37
DX: J02.8 Acute pharyngitis due to other specified organisms (principal); F41.9 Anxiety disorder, unspecified; Z88.1 Allergy status to other antibiotic agents; Z88.8 Allergy status to other drugs, medicaments and biological substances
CPT/HCPCS: 87651; 99211; G0463

== ENCOUNTER 2018-09-23 09:12 | Emergency (ER) | payer OTHER ==
[2018-09-23 09:21] VITALS: BP 135/91
[2018-09-23] MEDS ORDERED: Ibuprofen TAB* 600 MG PO ONE (10:15)
--- NOTE | 2018-09-23 10:16 | UC ---
Lower Extremity/Ankle HPI - HPI Summary HPI Summary: this AM fell off of one step and twisted her R ankle. Has swelling, pain, no redness. Unable to bare weight. Also notes she has R knee skin scrape. - History of Current Complaint Chief Complaint: UCLowerExtremity Stated Complaint: ANKLE AND KNEE INJURY Time Seen by Provider: 09/23/18 10:04 Hx Obtained From: Patient Hx Last Menstrual Period: 08/31/18 Onset/Duration: Sudden Onset Severity Initially: Moderate Severity Currently: Moderate Pain Intensity: 9 Pain Scale Used: 0-10 Numeric Aggravating Factor(s): Standing, Ambulation Alleviating Factor(s): Nothing Able to Bear Weight: No - Risk Factors Gout Risk Factors: Negative Septic Arthritis Risk Factor: Negative - Allergies/Home Medications Allergies/Adverse Reactions: Allergies Allergy/AdvReac Type Severity Reaction Status Date / Time azithromycin [From Zithromax] Allergy Vomiting Verified 09/23/18 09:23 erythromycin base Allergy Vomiting Verified 09/23/18 09:23 metoprolol Allergy Abdominal Verified 09/23/18 09:24 Pain PMH/Surg Hx/FS Hx/Imm Hx Previously Healthy: Yes - Surgical History Surgical History: Yes Surgery Procedure, Year, and Place: - Family History Known Family History: Positive: Hypertension Negative: Cardiac Disease, Diabetes - Social History Alcohol Use: Rare Substance Use Type: None Smoking Status (MU): Never Smoked Tobacco Have You Smoked in the Last Year: No - Immunization History Hx Tetanus, Diphtheria Vaccination: Yes Vaccination Up to Date: Yes Review of Systems Constitutional: Negative Skin: Bruising - R ankle, Other - L knee scrape Respiratory: Negative Cardiovascular: Negative Motor: Decreased ROM - R ankle, Other - swelling on R ankle Neurovascular: Negative Musculoskeletal: Arthralgia - R ankle, Edema - R ankle All Other Systems Reviewed And Are Negative: Yes Physical Exam Triage Information Reviewed: Yes Appearance: Well-Appearing, No Pain Distress, Other: - in wheel chair Vital Signs: Initial Vital Signs Temp 98 F 09/23/18 09:19 Pulse 79 09/23/18 09:19 Resp 17 09/23/18 09:19 BP 135/91 09/23/18 09:19 Pulse Ox 99 09/23/18 09:19 Vital Signs Reviewed: Yes Musculoskeletal Exam: Other - R knee unremarkable Musculoskeletal: Positive: ROM Intact - at R toes, Strength Limited @ - R ankle due to swelling/pain, ROM Limited @ - R ankle, tenderness, Edema @ - R ankle Psychological: Positive: Age Appropriate Behavior Skin: Positive: Other - R knee superficial abrasion Lower Extremity Course/Dx - Differential Dx/Diagnosis Differential Diagnosis/HQI/PQRI: Arthritis, Contusion, Dislocation, Sprain, Strain Provider Diagnoses: R ankle avulsion/sprain; left knee abrasion Discharge - Sign-Out/Discharge Documenting (check all that apply): Patient Departure All imaging exams completed and their final reports reviewed: Yes - Discharge Plan Condition: Good Disposition: HOME Patient Education Materials: Ankle Sprain (ED) Referrals: Chen Cisneros PA [Primary Care Provider] - Additional Instructions: if worsening please follow up with your primary care. please do not bare weight on your ankle. - Billing Disposition and Condition Condition: GOOD Disposition: Home
== END 2018-09-23 10:55 | disposition home or self-care (01) ==
LOC: UCEAST 09:12
DX: S93.401A Sprain of unspecified ligament of right ankle, initial encounter (principal); W01.0XXA Fall on same level from slipping, tripping and stumbling without subsequent striking against object, initial encounter; Y92.9 Unspecified place or not applicable
CPT/HCPCS: 99213; A9270-GY; G0463

== ENCOUNTER 2019-01-20 11:18 | Emergency (ER) | payer OTHER ==
--- OUTSIDE RECORDS SUMMARY | 2019-01-20 11:25 | XMS REPORT | Continuity of Care Document ---
:1980 External Reference #:[id number] Author Name Jaylin Cisneros RPAC Address [address] [place] [address] Care Team Providers Name Role Phone Jaylin Cisneros RPAC Care Team Information Epic Kaleidoscope Analyst Unavailable Jaylin Cisneros RPAC Primary Care Physician Unavailable Payers Date Identification Numbers Payment Provider Subscriber Effective: 2008 Policy Number: [id number] [employer] Анна Edmond PayID: [id number] [place] [address] Advance Directives Description No Information Available Problems Date Description Provider Status Onset: 03/15/2014 Cervical disc disorder Jaylin Cisneros RPAC Active Note: MRI 2013 Onset: 07/21/2013 Palpitations Jaylin Cisneros RPAC Active Note: PAC/PVC 2012 Onset: 07/24/2011 Premenstrual tension syndrome Jaylin Cisneros RPAC Active Onset: 03/10/2017 Premature ovarian failure Jaylin Cisneros RPAC Active Note: elevated FSH noted 2016, variable menses since that time Onset: 03/05/2018 Anxiety state Jaylin Cisneros RPAC Active Onset: 06/01/2018 Vitamin D deficiency Jaylin Cisneros RPAC Active Onset: 07/30/2018 Plantar fasciitis Jaylin Cisneros RPAC Active Note: 2016 Onset: 11/07/2003 Contusion of finger Resolved Resolved: 03/06/2016 Onset: 11/07/2003 Contusion of hand Resolved Resolved: 03/06/2016 Onset: 01/22/2018 Iliotibial band friction syndrome Jaylin Cisneros RPAC Resolved Resolved: 08/01/2018 Onset: 05/28/2018 Pain in limb Jaylin Cisneros RPAC Resolved Resolved: 08/01/2018 Family History Date Family Member(s) Observation Comments Father Rheumatoid Arthritis Mother Hypertension Mother Anxiety First Sister PCOS First Sister Anxiety Paternal Grandmother Hypertension Maternal Grandmother Hypertension Maternal Grandmother Anxiety Social History Type Date Description Comments Sex Unknown Lives With Son Diet Healthy, Well Balanced Occupation Sales ETOH Use Occasionally consumes alcohol Tobacco Use Start: Unknown Patient has never smoked Smoking Status Reviewed: 01/03/19 Patient has never smoked Allergies, Adverse Reactions, Alerts Date Description Reaction Status Severity Comments 01/12/2015 Azithromycin DYSPEPSIA Active 12/20/2012 Buspirone Hyperactivity Active 12/20/2012 Citalopram Worsens Depression Active 12/20/2012 Macrolides And Ketolides Nausea Active 08/12/2017 Metoprolol diarrhea Active 01/03/2019 Escitalopram trismus at higher dose Active Medications Medication Date Status Form Strength Qnty SIG Indications Ordering Provider Escitalopram 01/03/20 Active Tablets 5mg 5tabs 1 tab by Emiliano, Oxalate 19 mouth Miguel, every M.D. morning Bupropion 01/03/20 Active Tablets 150mg 30tab 1 tab by F41.9 Cummings, Hydrochloride ER 19 ER 24HR s mouth Miguel, (XL) every day M.D. 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 18 and treat Escitalopram 04/26/20 Hx Tablets 10mg 90tab Take One Emiliano, Oxalate 18 - s Tablet By Miguel, 01/03/20 Mouth M.D. 19 Once Daily Escitalopram 02/25/20 Hx Tablets 5mg 30tab 1 tab by Cummings, Oxalate 18 - s mouth Miguel, 04/26/20 every day M.D. 18 Multivitamin 10/23/20 Hx Tablets 1 a day Emiliano Women 17 - Miguel, 05/28/20 M.D. 18 Ibuprofen 10/23/20 Hx Capsules 200mg as needed Cummings, 17 - Miguel, 06/01/20 M.D. 18 Nissa 07/31/20 Hx Tablets 0.35mg 28tab 1 tab by Emiliano 17 - s mouth Miguel, 02/10/20 every M.D. 18 day, or any progester one only ocp Metoprolol 07/03/20 Hx Tablets 25mg 30tab 1/2 tab I10 Emiliano, Succinate ER 17 - ER 24HR s by mouth Miguel, 08/12/20 every day M.D. 17 Penicillin V 06/26/20 Hx Tablets 500mg 30tab 1 tab by A38.9 Emiliano Potassium 17 - s mouth Miguel, 07/07/20 three M.D. 17 times a day Lessina 05/21/20 Hx Tablets 0.1-20mg- 28tab 1 tab by N95.8 Emiliano, 17 - mcg s mouth Miguel, 06/28/20 every day M.D. 17 No Active 03/25/20 Hx Unknown Medications - 03/25/20 17 Ortho Tri-Cyclen 03/25/20 Hx Tablets 0.18/0.21 90tab 1 tab by N95.8 Cassidy Bates 17 - 5/0.25 s mouth Mica, 05/21/20 mg-25 mcg every day M.D. 17 No Active 02/14/20 Hx Unknown Medications - 02/14/20 17 Amphetamine-Dextr 02/14/20 Hx Tablets 5mg 30tab 1 tab by R41.840 Emiliano oamphetamine 17 - s mouth prn Miguel, 03/25/20 M.D. 17 No Active 04/11/20 Hx Unknown Medications - 04/11/20 15 Gabapentin 04/11/20 Hx Capsules 100mg 60cap take 1 to 723.1 Landen 15 - s 2 Deanna 02/14/20 capsules , M.D. 17 by mouth at bedtime for neck pain Cyclobenzaprine Hx Tablets 10mg 90tab 1 by MANE Schuster 00 - s mouth Deanna 04/11/20 MD tariq 15 times a day as needed Oxycodone/Acetami Hx Tablets 5-325mg 30tab one abdi Schuster 00 - s tablet by Deanna 04/11/20 MD lillie 15 every 6 hours as needed for pain Reference #: [id number] Methylprednisolon Hx Tablets 4mg start 6 Unknown e 00 - tabs on 06/29/20 day one 17 then decrease by 1 tab each day until gone Triamcinolone Hx Cream 0.1% apply to Unknown Acetonide 00 - irritated Unknown areas three times a day as needed. do not use on face or pelvic areas Meloxicam Hx Tablets 15mg 1 tablet Villagonz 00 - daily. steve, 10/27/20 Gordo 18 DPM Immunizations CPT Code Status Date Vaccine Reaction Lot # [id number] Given 09/18/2017 Influenza Virus Vaccine received at [facility] Quadrivalent Iiv4 Split Preser Free Id Vital Signs Date Vital Result Comment 01/03/2019 2:00pm BP Systolic Sitting Left Arm 124 mmHg BP Diastolic Sitting Left Arm 84 mmHg Body Temperature 98.5 F Heart Rate 73 /min Respiratory Rate 18 /min Height 65 inches 5'5" Weight 223.00 lb BMI (Body Mass Index) 37.1 kg/m2 BSA (Body Surface Area) 2.07 m2 Narvon body weight in kilograms 57 kg O2 % BldC Oximetry 99 % Ra 10/27/2018 10:36am BP Systolic Sitting Left Arm 124 mmHg BP Diastolic Sitting Left Arm 84 mmHg Body Temperature 98.4 F Heart Rate 74 /min Respiratory Rate 18 /min Height 65 inches 5'5" Weight 219.00 lb BMI (Body Mass Index) 36.4 kg/m2 BSA (Body Surface Area) 2.06 m2 Narvon body weight in kilograms 57 kg O2 % BldC Oximetry 97 % Ra 07/30/2018 11:03am BP Systolic Sitting Left Arm 120 mmHg BP Diastolic Sitting Left Arm 80 mmHg Body Temperature 99.1 F Heart Rate 78 /min Respiratory Rate 18 /min Height 65 inches 5'5" Weight 215.00 lb BMI (Body Mass Index) 35.8 kg/m2 BSA (Body Surface Area) 2.04 m2 Narvon body weight in kilograms 57 kg 05/28/2018 11:12am BP Systolic Sitting Right Arm 112 mmHg BP Diastolic Sitting Right Arm 86 mmHg Body Temperature 99.0 F Heart Rate 64 /min reg Respiratory Rate 18 /min Height 65 inches 5'5" Weight 220.00 lb BMI (Body Mass Index) 36.6 kg/m2 BSA (Body Surface Area) 2.06 m2 Narvon body weight in kilograms 57 kg O2 % BldC Oximetry 96 % 03/05/2018 3:33pm BP Systolic Sitting Right Arm 124 mmHg BP Diastolic Sitting Right Arm 86 mmHg Heart Rate 82 /min reg Respiratory Rate 15 /min Height 65 inches 5'5" Weight 224.00 lb BMI (Body Mass Index) 37.3 kg/m2 BSA (Body Surface Area) 2.08 m2 Narvon body weight in kilograms 57 kg O2 % BldC Oximetry 98 % 01/22/2018 9:06am BP Systolic Sitting Right Arm 134 mmHg BP Diastolic Sitting Right Arm 78 mmHg Heart Rate 73 /min Height 65 inches 5'5" Weight 221.00 lb BMI (Body Mass Index) 36.8 kg/m2 BSA (Body Surface Area) 2.06 m2 Narvon body weight in kilograms 57 kg O2 % BldC Oximetry 98 % 10/23/2017 1:52pm BP Systolic Sitting Right Arm 122 mmHg BP Diastolic Sitting Right Arm 82 mmHg Heart Rate 80 /min Height 65 inches 5'5" Weight 225.00 lb BMI (Body Mass Index) 37.4 kg/m2 BSA (Body Surface Area) 2.08 m2 Narvon body weight in kilograms 57 kg O2 % BldC Oximetry 97 % 07/24/2017 2:25pm BP Systolic Sitting Right Arm 136 mmHg BP Diastolic Sitting Right Arm 88 mmHg Heart Rate 77 /min Respiratory Rate 18 /min Height 65 inches 5'5" Weight 227.00 lb BMI (Body Mass Index) 37.8 kg/m2 BSA (Body Surface Area) 2.09 m2 Narvon body weight in kilograms 57 kg O2 % BldC Oximetry 97 % 07/03/2017 2:05pm BP Systolic Sitting Left Arm 140 mmHg repeat 146/98 BP Diastolic Sitting Left Arm 95 mmHg repeat 146/98 Heart Rate 94 /min 98 Respiratory Rate 16 /min Height 65 inches 5'5" Weight 229.38 lb BMI (Body Mass Index) 38.2 kg/m2 BSA (Body Surface Area) 2.10 m2 Narvon body weight in kilograms 57 kg 06/26/2017 11:10am BP Systolic Sitting Right Arm 140 mmHg BP Diastolic Sitting Right Arm 100 mmHg Body Temperature 99.3 F Heart Rate 91 /min Respiratory Rate 20 /min Height 65 inches 5'5" Weight 227.00 lb BMI (Body Mass Index) 37.8 kg/m2 BSA (Body Surface Area) 2.09 m2 Narvon body weight in kilograms 57 kg O2 % BldC Oximetry 98 % 03/25/2017 1:08pm BP Systolic 122 mmHg BP Diastolic 70 mmHg Height 65 inches 5'5" Weight 228.00 lb BMI (Body Mass Index) 37.9 kg/m2 BSA (Body Surface Area) 2.09 m2 Narvon body weight in kilograms 57 kg 02/13/2017 12:56pm BP Systolic Sitting Right Arm 128 mmHg BP Diastolic Sitting Right Arm 70 mmHg Height 65 inches 5'5" Weight 226.25 lb BMI (Body Mass Index) 37.6 kg/m2 BSA (Body Surface Area) 2.08 m2 04/11/2015 11:17am Height 65 inches 5'5" Weight 217.25 lb BMI (Body Mass Index) 36.1 kg/m2 BSA (Body Surface Area) 2.05 m2 01/12/2015 11:07am BP Systolic 126 mmHg BP Diastolic 76 mmHg Weight 218.00 lb 09/29/2014 11:45am BP Systolic 132 mmHg BP Diastolic 70 mmHg Height 66 inches 5'6" Weight 219.00 lb 10/26/2013 1:33pm BP Systolic 122 mmHg BP Diastolic 68 mmHg Height 66 inches 5'6" Weight 204.00 lb 06/30/2013 1:24pm BP Systolic 130 mmHg BP Diastolic 74 mmHg Height 66 inches 5'6" Weight 200.00 lb 04/28/2013 11:06am BP Systolic 118 mmHg BP Diastolic 70 mmHg Height 66 inches 5'6" Weight 200.00 lb 12/20/2012 9:42am BP Systolic 130 mmHg BP Diastolic 70 mmHg Height 66 inches 5'6" Weight 214.00 lb 07/24/2011 9:59am BP Systolic 110 mmHg BP Diastolic 70 mmHg Height 66 inches 5'6" Weight 197.00 lb 07/18/2011 3:19pm BP Systolic 112 mmHg BP Diastolic 70 mmHg Height 65 inches 5'5" Weight 198.00 lb Results Test Date Facility Test Result H/L Range Note Laboratory test [facility] Rapid Strep Negative Negative 1 finding [phone] Molecular Laboratory test [facility] Throat Strep NO BETA 2, 3 finding [address] [place] [address] <SEE NOTE> [phone] Laboratory test [facility] Testosterone 33.59 ng/dL N 8-60 finding 7 [phone] Estradiol <40 pg/mL N 4 Follicle Stimulating Hormone 64.3 mIU/mL N 5 Estradiol, Confirmatory, S 11 pg/mL N 6 Laboratory test 02/13/2017 [facility] Prolactin 7.9 7, [address] ng/[place] [address] [phone] Glycohemoglobin A1c 02/13/2017 [facility] Glycohemoglobin 5.5 % N 4.[address] (A1c) -6. [place] [address] 3 [phone] eAG 111 mg/dL Comprehensive Metabolic 02/13/2017 [facility] Glucose 83 mg/dL N 74-[address] [place], [place] [id number] [phone] BUN 15 mg/dL N 7-18 Creatinine 0.8 mg/dL N 0.6-1.3 Glom Filtration Rate, Estimate >60 mL/min >60 If >60 mL/min >60 10 BUN/Creat 18.7 ratio Sodium 141 mmol/L N 136-145 Potassium 4.0 mmol/L N 3.5-5.1 Chloride 107 mmol/L N 98-107 Carbon Dioxide 26 mmol/L N 21-32 Anion Gap 8 mEq/L N 8-16 Calcium 9.0 mg/dL N 8.5-10.1 Total Protein 8.1 g/dL N 6.4-8.2 Albumin 4.0 g/dL N 3.4-5.0 Globulin 4.1 g/dL N 1.9-4.3 Alb/Glob 1.0 ratio Bilirubin,Total 0.9 mg/dL N 0.2-1.0 Sgot/Ast 21 U/L N 15-37 SGPT/Alt 33 U/L N 12-78 Alkaline Phosphatase 84 U/L N 45-117 Laboratory test 02/13/2017 [facility] FSH 62.9 mIU/mL 11 finding [address] [place] [address] [phone] Basic Metabolic 12/18/2016 [facility] Sodium 140 mmol /L N 133-145 Panel [phone] Potassium 3.6 mmol/L N 3.5-5.0 Chloride 105 mmol/L N 101-111 Co2 Carbon Dioxide 28 mmol/L N 22-32 Anion Gap 7 mmol/L N 2-11 Glucose 104 mg/dL High 70-100 Blood Urea Nitrogen 17 mg/dL N 6-24 Creatinine 0.73 mg/dL N 0.51-0.95 BUN/Creatinine Ratio 23.3 High 8-20 Calcium 9.4 mg/dL N 8.6-10.3 Egfr Non- 89.7 N >60 Egfr 115.4 N >60 12 Laboratory test 12/18/2016 [facility] TSH (Thyroid 1.53 N 0.34-5.60 finding [phone] Stimulating mcIU/mL Horm) CBC Auto Diff 12/18/2016 [facility] White Blood 7.5 10^3/uL N 3.5-10.8 [phone] Count Red Blood Count 4.38 10^6/uL N 4.0-5.4 Hemoglobin 12.9 g/dL N 12.0-16.0 Hematocrit 38 % N 35-47 Mean Corpuscular Volume 88 fL N 80-97 Mean Corpuscular Hemoglobin 30 pg N 27-31 Mean Corpuscular HGB Conc 34 g/dL N 31-36 Red Cell Distribution Width 14 % N 10.5-15 Platelet Count 260 10^3/uL N 150-450 Mean Platelet Volume 8 um3 N 7.4-10.4 Abs Neutrophils 4.5 10^3/uL N 1.5-7.7 Abs Lymphocytes 2.2 10^3/uL N 1.0-4.8 Abs Monocytes 0.6 10^3/uL N 0-0.8 Abs Eosinophils 0.1 10^3/uL N 0-0.6 Abs Basophils 0 10^3/uL N 0-0.2 Abs Nucleated RBC 0.01 10^3/uL N Granulocyte % 59.7 % N 38-83 Lymphocyte % 29.5 % N 25-47 Monocyte % 8.5 % N 1-9 Eosinophil % 1.7 % N 0-6 Basophil % 0.6 % N 0-2 Nucleated Red Blood Cells % 0.1 N Laboratory test 09/19/2015 [facility] Throat Beta SEE RESULT 13 finding [phone] Strep Culture BELOW Laboratory test 04/11/2015 [facility] TSH Reflex 1.34 uIU/mL 0.36-[address] FT4 and/or .74 [place] [address] FT3 [phone] C-Reactive Protein,Quant < 2.9 mg/L <3.0 Sedimentation Rate 10 mm/hr 0-20 CBS W/Automated Diff 04/11/2015 [facility] White Blood 6.7 K/uL 3.1-10.[address] [place] [address] [phone] Red Blood Count 4.12 M/uL 3.90-5.40 Hemoglobin [...] % 40.4-72.8 Lymph % 37.7 % 17.0-46.1 Gladwin % 9.1 % 4.3-13.2 Eo% 1.3 % 0.0-6.6 Bas% 0.4 % 0.0-1.1 Neut# 3.45 K/uL 1.0-7.0 Lymph # 2.53 K/uL 1.8-7.0 Gladwin # 0.61 K/uL 0.3-0.9 Eos # 0.09 K/uL 0.0-0.5 Baso # 0.03 K/uL 0.0-0.1 Laboratory test 02/08/2015 N2N/CCD Import C. difficile (See Note) 15, 16 finding Amplified Dna O P: Giardia/Cryptospor Screen (See Note) 17 Stool Culture (See Note) 18 Stool For Blood 02/08/2015 N2N/CCD Import Stool Occult (See Note) 19 Blood Throat-Beta Strept 10/21/2013 N2N/CCD Import Throat Beta Strep (See Note) 20 Culture Laboratory test 06/28/2013 N2N/CCD Import Magnesium 1.9 mg/dL 1.7-2.6 finding TSH (Thyroid Stimulating Horm) 2.38 miu/mL 0.34-5.60 Troponin I 0 ng/mL 0-0.06 21 CBC Auto Diff 06/28/2013 N2N/CCD Import Abs Basophils 0.1 10^3/uL 0-0.2 Abs Eosinophils [...] 8.0 10^3/uL 4.8-10.8 Comp Metabolic Panel 06/28/2013 N2N/CCD Import Albumin 4.1 g/dL 3.6-5.4 Albumin/Globulin Ratio 1.3 1-3 Alkaline Phosphatase 54 U/L 30-110 Alt 15 U/L 14-54 Anion Gap 7.0 mmol/L 2-11 Ast 24 U/L 12-42 BUN/Creatinine Ratio 21.3 High 8-20 Blood Urea Nitrogen 17 mg/dL 6-24 Calcium 9.3 mg/dL 8.1-9.9 Chloride 106 mmol/L 101-111 Co2 Carbon Dioxide 25.0 mmol/L 22-32 Creatinine 0.80 mg/dL 0.50-1.40 Egfr 105.6 >60 22 Egfr Non- 82.1 >60 Globulin 3.2 g/dL 2-4 Glucose 92 mg/dL 70-100 Potassium 3.5 mmol/L 3.5-5.0 Sodium 138 mmol/L 133-145 Total Bilirubin 1.0 mg/dL 0.4-1.5 Total Protein 7.3 g/dL 6.2-8.1 Laboratory test finding 12/20/2012 N2N/CCD Import Cytology Pap See Note 23 1 Transmission Engineer: [id number] A38.9 3 NO BETA STREPTOCOCCI ISOLATED 4 Estradiols <40 pg/mL are sent to a reference lab for low range testing. Postmenopausal Females < 20 Ovulating females: by day in cycle relative to LH Peak Follicular phase - 12 10-50 - 4 60-200 Mid-cycle - 1 120-375 Luteal phase + 2 50-155 + 6 60-260 + 12 15-115 5 Normally menstruating females - Follicular phase 3 - 9 - Mid-cycle peak 4 - 23 - Luteal phase 1 - 6 Postmenopausal females 16 - 114 6 REFERENCE VALUE Premenopausal: 15-350 (E2 levels vary widely through the menstrual cycle.) Postmenopausal: <10 ADDITIONAL INFORMATION This test was developed and its performance characteristics determined by [facility] in a manner consistent with CLIA requirements. This test has not been cleared or approved by the U.S. Food and Drug Administration. Test Performed by: [facility] [place] - [address] [address] 7 Z12.4 8 Non- ..... 2.2-30.3 ng/mL ......... 8.1-347.6 ng/mL Post-Menopausal .. 0.7-31.5 ng/mL 9 Elevated levels of HbA1c suggest the need for more aggressive treatment of glycemia. The [place] [employer] recommends that a primary goal of therapy should be a HbA1c of <7% and that physicians should re-evaluate the treatment regimen in patients with HbA1c values consistently >8%. 10 Note: Persistent reduction for 3 months or more in an eGFR <60 mL/min/1.73 m2 defines CKD. Patients with eGFR values >/=60 mL/min/1.73 m2 may also have CKD if evidence of persistent proteinuria is present. The original MDRD equation for estimated GFR is not valid for patients less than 18 years of age. Additional information may be found at www.kdoqi.org. 11 NORMALLY MENSTRUATING FEMALES: Follicular Phase:............... 2.3-12.6 mIU/mL Mid-Cycle Peak:................. 5.2-17.5 mIU/mL Luteal Phase:................... 1.7-9.5 mIU/mL POSTMENOPAUSAL FEMALES: On menopausal hormone therapy (MHT)... 5.9-72.8 mIU/mL Not on MHT ........................... 0.7-10.8 mIU/mL 12 Because ethnic data is not always readily [...] 15-29 5 Kidney failure <15 (or dialysis) 13 SEE RESULT BELOW Name: АННА EDMOND : [address]: Arnulfo Fernandes MD Acct: [id number] Unit: [id number] AGE: 35 Location: [facility] Re09/19/15 SEX: F Status: DEP ER SPEC: [id number] IBIS: 09/19/15-[address] [facility] [address]: Tomas CESAR REQ: [id number] RECD: 09/20/15 STATUS: JOSE DE JESUS DELGADO DR: Arnulfo CESAR _ SOURCE: THROAT SPDESC: ORDERED: Throat Beta Str Procedure Result Verified Site Throat Beta Strep Culture Final 09/22/15- 0815 ML Negative For Group A Beta Streptococcus * ML - MAIN LAB ([facility]) . END OF REPORT * ML=Testing performed at Main Lab DEPARTMENT OF PATHOLOGY, [facility] [employer] [place], [place] [address] Reese Wyman M.D. Director [facility] # [id number] QUERY: Reflex add FT3? Y QUERY: Reflex add FT4? Y 15 NO PLAIN CUP RECEIVED UNABLE TO DO HEMOCCULT, LACTOFERRIN AND STOOL DESCRIPTION NO PLAIN CUP RECEIVED UNABLE TO DO HEMOCCULT, LACTOFERRIN AND STOOL DESCRIPTION Verbal to [id number] NO PLAIN CUP RECEIVED UNABLE TO DO HEMOCCULT, LACTOFERRIN AND STOOL DESCRIPTION Verbal to [id number] NO PLAIN CUP RECEIVED UNABLE TO DO HEMOCCULT, LACTOFERRIN AND STOOL DESCRIPTION Verbal to [id number] RUN DATE: 02/09/15 [facility] LAB LIVE PAGE 1 RUN TIME: 1792 [facility] [place], [place] [address] Specimen Inquiry ----- Name: АННА EDMOND : [address]: Laurie Claros NP Acct: [id number] Unit: [id number] AGE: 35 Location: [facility] Re02/08/15 SEX: F Status: REG REF ----- SPEC: [id number] IBIS: 02/08/15-[address]: Sujey Cheng MD REQ: [id number] RECD: 02/08/15151 STATUS: RES OTHR DR: Jaylin Cisneros PA _ SOURCE: STOOL SPDESC: ORDERED: Hemoccult, Stool Culture, Fecal Lactoferr, C. diff Amp DNA, O P: Baldo/Chucho COMMENTS: NO PLAIN CUP RECEIVED UNABLE TO DO HEMOCCULT, LACTOFERRIN AND STOOL DESCRIPTION Verbal to [id number]/HAILEY by [email or web address] at 1527 on . Results read back [...] performed at Main Lab DEPARTMENT OF PATHOLOGY, [facility] [employer] [place] [address] Reese Wyman M.D. Director [facility] # [id number] RUN DATE: 02/09/15 [facility] LAB LIVE PAGE 2 RUN TIME: [address] [place] [address] Specimen Inquiry ----- Patient: АННА EDMOND [id number] (Continued) ----- Specimen: [id number] Collected: 02/08/15-1299 Received: 02/08/15-1516 (Continued) ----- Procedure [...] is requested. Contact the Microbiology Department at [phone]. TEST LIMITATIONS: As with all diagnostic procedures, [...] recommended. ----- * ML - MAIN LAB ([facility]) . END OF REPORT * ML=Testing performed at Main Lab DEPARTMENT OF PATHOLOGY, [facility] [employer] [place], [place] [address] Reese Wyman M.D. Director [facility] # [id number] 17 RUN DATE: 02/09/15 [facility] LAB LIVE PAGE 1 RUN TIME: 1401 [facility] [place], [place] [address] Specimen Inquiry ----- Name: АННА EDMOND Sarai : [address]: Laurie Claros NP Acct: [id number] Unit: [id number] AGE: 35 Location: [facility] Re02/08/15 SEX: F Status: REG REF ----- SPEC: [id number] IBIS: 02/08/15-[address]: Sujey Cheng MD REQ: [id number] RECD: 02/08/15-1516 STATUS: RES DANNY DR: Jaylin Cisneros PA _ SOURCE: STOOL SPDESC: ORDERED: Hemoccult, Stool Culture, Fecal Lactoferr, C. diff Amp DNA, O P: Giar/Cr COMMENTS: NO PLAIN CUP RECEIVED UNABLE TO DO HEMOCCULT, LACTOFERRIN AND STOOL DESCRIPTION Verbal to OLLIE/HAILEY by [id number] at 1527 on . Results read back [...] performed at Main Lab DEPARTMENT OF PATHOLOGY, [facility] [employer] [place], [place] [address] Reese Wyman M.D. Director [facility] # [id number] RUN DATE: 02/09/15 [facility] LAB LIVE PAGE 2 RUN TIME: 1401 [facility] [place], [place] [address] Specimen Inquiry ----- Patient: АННА EDMOND [id number] (Continued) ----- Specimen: [id number] Collected: 02/08/15-1299 Received: 02/08/15-1516 (Continued) ----- Procedure [...] is requested. Contact the Microbiology Department at [phone]. TEST LIMITATIONS: As with all diagnostic procedures, [...] recommended. ----- * ML - MAIN LAB ([facility]) . END OF REPORT * ML=Testing performed at Main Lab DEPARTMENT OF PATHOLOGY, [facility] [employer] [place] [address] Reese Wyman M.D. Director [facility] # [id number] 18 RUN DATE: 02/10/15 [facility] LAB LIVE PAGE 1 RUN TIME: 856 [facility] [place], [place] [address] Specimen Inquiry ----- Name: АННА EDMOND : [address]: Laurie Claros NP Acct: [id number] Unit: [id number] AGE: 35 Location: [facility] Re02/08/15 SEX: F Status: REG REF ----- SPEC: [id number] IBIS: 02/08/15-[address]: Sujey Cheng MD REQ: [id number] RECD: 02/08/15151 STATUS: JOSE DE JESUS DELGADO DR: Jaylin Cisneros PA _ SOURCE: STOOL SPDESC: ORDERED: Hemoccult, Stool Culture, Fecal Lactoferr, C. diff Amp DNA, O P: Baldo/Chucho COMMENTS: NO PLAIN CUP RECEIVED UNABLE TO DO HEMOCCULT, LACTOFERRIN AND STOOL DESCRIPTION Verbal to OLLIE/HAILEY by [id number] at 1527 on . Results read back [...] performed at Main Lab DEPARTMENT OF PATHOLOGY, [facility] [employer] [place], [place] [address] Reese Wyman M.D. Director [facility] # [id number] RUN DATE: 02/10/15 [facility] LAB LIVE PAGE 2 RUN TIME: 856 [facility] [place], [place] [address] Specimen Inquiry ----- Patient: АННА EDMOND [id number] (Continued) ----- Specimen: [id number] Collected: 02/08/15-1299 Received: 02/08/15-1516 (Continued) ----- Procedure [...] performed at Main Lab DEPARTMENT OF PATHOLOGY, [facility] [employer] [place], [place] [address] Reese Wyman M.D. Director [facility] # [id number] RUN DATE: 02/10/15 [facility] LAB LIVE PAGE 3 RUN TIME: 5234 [facility] [place], [place] [address] Specimen Inquiry ----- Patient: АННА EDMOND [id number] (Continued) ----- Specimen: [id number] Collected: 02/08/15 Received: 02/08/15 (Continued) ----- Procedure Result Verified Site ----- O P: Giardia/Cryptospor Screen Final (continued) 02/09/15-1400 at [phone]. TEST LIMITATIONS: As with all diagnostic procedures, [...] recommended. ----- * ML - [facility] HOSPITAL[facility]) . END OF REPORT * ML=Testing performed at Main Lab DEPARTMENT OF PATHOLOGY, [facility] [place] [place], [place] [address] Reese Wyman M.D. Director CLIA # [id number] RUN DATE: 02/09/15 [facility] LAB LIVE PAGE 1 RUN TIME: 815 [facility] [place], [place] [address] Specimen Inquiry ----- Name: АННА EDMOND Sarai : [address]: Laurie Claros NP Acct: [id number] Unit: [id number] AGE: 35 Location: [facility] Re02/08/15 SEX: F Status: REG REF ----- SPEC: [id number] IBIS: 02/08/15-[address]: Sujey Cheng MD REQ: [id number] RECD: 02/08/15 STATUS: RES OTHR DR: Jaylin Cisneros PA _ SOURCE: STOOL SPDESC: ORDERED: Hemoccult, Stool Culture, Fecal Lactoferr, C. diff Amp DNA, O P: Giar/Chucho COMMENTS: NO PLAIN CUP RECEIVED UNABLE TO DO HEMOCCULT, LACTOFERRIN AND STOOL DESCRIPTION Verbal to OLLIE/HAILEY by [id number] at 1527 on . Results read back [...] PENDING ----- * ML - MAIN LAB ([facility]) . END OF REPORT * ML=Testing performed at Main Lab DEPARTMENT OF PATHOLOGY, [facility] [employer] [place], [place] [address] Reese Wyman M.D. Director CHET # [id number] 20 RUN DATE: 10/23/13 [facility] LAB LIVE PAGE 1 RUN TIME: [address] [place] [id number] Specimen Inquiry ----- Name: АННА EDMOND Sarai : [address]: Sujey Cheng MD Acct: [id number] Unit: [id number] AGE: 33 Location: [facility] Re10/21/13 SEX: F Status: DEP ER ----- SPEC: [id number] IBIS: 10/21/[address] [facility] [address]: Sujey Cheng MD REQ: [id number] RECD: 10/21/13 STATUS: JOSE DE JESUS DELGADO DR: JENNIFER CESAR _ SOURCE: THROAT SPDESC: ORDERED: Throat Beta Str ----- Procedure Result Verified Site ----- Throat Beta Strep Culture Final 10/23/13-856 ML Negative For Group A Beta Streptococcus ----- END OF REPORT * ML=Testing performed at Main Lab DEPARTMENT OF PATHOLOGY, [address] [place] [address] Reese Wyman M.D. Director [facility] Permit # [id number] 21 Reference Range and Interpretation: TnI (ng/mL) Interpretation Less Than 0.06 ng/mL Not supportive of diagnosis of MD 0.06 - 0.50 ng/mL Indeterminate: suggest serial studies if clinically indicated. Greater than 0.5 ng/mL Consistent with diagnosis of MD 22 Because ethnic data is not always readily [...] 15-29 5 Kidney failure <15 (or dialysis) 23 Cytology Laboratory [address] [facility], [address] [place] [address] CYTOLOGY REPORT Name: Анна Edmond Accession # : [id number] : 1980 (Age: 32) Sex: F Location: [facility] Med. Rec. # Date Collected: 12/20/2012 Billing #: [id number] Date Received: 12/20/2012 Physician(s): JAYLIN OGLESBY Source of Specimen: ENDOCERVICAL/ ECTOCERVICAL THIN PREP Clinical Information: Date of Last Menstrual Period: 12/03/12 Menstrual History: Regular Specimen Adequacy: SATISFACTORY FOR EVALUATION. NO ENDOCERVICAL/TRANSFORMATION ZONE. General Categorization: NEGATIVE FOR INTRAEPITHELIAL LESION OR MALIGNANCY. dcl Electronic Signature AISSATOU Sorto (ASCP) Reported: 12/21/2012 Also seen by :AISSATOU Chavez ( ASCP) Cytology Outreach [facility] ICD-9 Code(s) V72.31 Procedures Description No Information Available Encounters Type Date Location Provider Dx Diagnosis Office Visit 10/27/2018 [facility], F41.9 Anxiety disorder, 10:00a Office JOHNNY SiddiquiC unspecified Office Visit 07/30/2018 [facility] F41.9 Anxiety disorder, 10:45a Office SUSANNE Siddiqui unspecified M26.603 Bilateral temporomandibular joint disorder, unspecified Office Visit 05/28/2018 11:00a [facility], F41.9 Anxiety disorder, Office Jaylin RPAC unspecified M79.673 Pain in unspecified foot Office Visit 03/05/2018 2:45p [facility], F41.9 Anxiety disorder, Office Jaylin RPAC unspecified Office Visit 01/22/2018 9:00a [facility] E28.9 Ovarian Office SUSANNE Siddiqui dysfunction, unspecified M76.31 Iliotibial band syndrome, right leg F32.81 Premenstrual dysphoric disorder Office Visit 10/23/2017 1:45p Primary [facility] [place], E28.310 Symptomatic Office Jaylin [facility] premature menopause Office Visit 07/24/2017 2:15p Primary [facility] [place], I10 Essential Office Jaylin [facility] (primary) hypertension M79.673 Pain in unspecified foot Office Visit 07/03/2017 2:00p [facility], I10 Essential ( primary) Office Jaylin [facility] hypertension Office Visit 06/26/2017 11:15a Primary [facility], A38.9 Scarlet fever, Office Jaylin [facility] uncomplicated R03.0 Elevated blood-pressure reading, w/o diagnosis of htn Office Visit 03/25/2017 1:15p Endocrinology Mica Bates, E66.9 Obesity, M.D. unspecified N95.8 Other specified menopausal and perimenopausal disorders Office Visit 02/13/2017 1:00p [facility], Z01.411 Encntr for wellness instructor Office Jaylin [facility] exam (general) (routine) w abnormal findings Z12.72 Encounter for screening for malignant neoplasm of vagina R41.840 Attention and concentration deficit N91.5 Oligomenorrhea, unspecified Z32.02 Encounter for test, result negative Office Visit 04/11/2015 11:30a Family Medicine Jaylin Cisneros, [address] [facility] 784.0 Headache 704.00 Alopecia Unspec 727.1 Bunion 626.6 Metrorrhagia Plan of Treatment 01/03/2019 - Jaylin Cisneros RPACF41.9 Anxiety disorder, unspecifiedNew Medication:Bupropion Hydrochloride ER (XL) 150 mg - 1 tab by mouth every dayComments:Current tx: Escitalopram 10mg 1 tablet daily In counselingDecrease to 5mg daily for 5 days thendiscontinueStart Bupropion XL 150mg dailyFollow up:4-6 wks
[2019-01-20 11:30] VITALS: BP 155/96
--- NOTE | 2019-01-20 11:42 | UC ---
Psychiatric Complaint HPI - HPI Summary HPI Summary: Feeling extremely weepy after recently decreasing mg of lexapro and pcp advised her to start Wellbutrin the week Lexapro was supposed to be decreasing. She never started wellbutrin and has now been increasingly started to weep. she denies SI or wanting to harm others. does not feel quite depressed. originally started lexapro for anxiety but started to get jaw tightening/pain w / Lexapro so her pcp was going to start switching her to lexapro to wellbutrin. declined urine hcg testing. - History Of Current Complaint Chief Complaint: UCPsych Stated Complaint: MED ADJUSTMENT Time Seen by Provider: 01/20/19 11:35 Hx Obtained From: Patient Hx Last Menstrual Period: October - Allergies/Home Medications Allergies/Adverse Reactions: Allergies Allergy/AdvReac Type Severity Reaction Status Date / Time azithromycin [From Zithromax] Allergy Vomiting Verified 01/20/19 11:31 erythromycin base Allergy Vomiting Verified 01/20/19 11:31 metoprolol Allergy Abdominal Verified 01/20/19 11:31 Pain Home Medications: Home Medications Bupropion XL* [Wellbutrin XL *] 1 tab PO DAILY 01/20/19 [History Confirmed 01/20] PMH/Surg Hx/FS Hx/Imm Hx Previously Healthy: Yes - Surgical History Surgical History: Yes Surgery Procedure, Year, and Place: - Family History Known Family History: Positive: Hypertension Negative: Cardiac Disease, Diabetes - Social History Alcohol Use: Rare Substance Use Type: Prescribed Smoking Status (MU): Never Smoked Tobacco Have You Smoked in the Last Year: No - Immunization History Hx Tetanus, Diphtheria Vaccination: Yes Vaccination Up to Date: Yes Review of Systems All Other Systems Reviewed And Are Negative: Yes Constitutional: Positive: Negative Neurological: Negative: Headache, Weakness, Paresthesia, Numbness Psychological: Positive: Other - weeping Physical Exam Triage Information Reviewed: Yes Completion Of Physical Exam Limited Due To: Other - weeping twice during visit. Appearance: Well-Appearing Vital Signs: Initial Vital Signs Temp 96.5 F 01/20/19 11:25 Pulse 77 01/20/19 11:25 Resp 12 01/20/19 11:25 BP 155/96 01/20/19 11:25 Pulse Ox 100 01/20/19 11:25 Musculoskeletal: Positive: Strength Intact - LE Neurological: Positive: Alert Psychological: Positive: Consolable, Other: - wept 2x during visit while explaining hx Psych Complaint Course/Dx - Course Course Of Treatment: Emotional lability after a recent titrating down of Lexapro. Was supposed to start Wellbutrin while slowly decr. Lexapro and never did. Was able to call the balbir provider at her pcp's office: [phone]; and advised them to call pt to see her w/in 2 wks. She denies SI/HI. Strongly encouraged pt. to return here or ED should she develop depression or worsening mood. blood pressure slightly elevated, she will speak to pcp about this. - Differential Dx/Diagnosis Differential Diagnosis/HQI/PQRI: Alcohol Intoxication, Depression, Suicidal Ideation Provider Diagnosis: SSRI (selective serotonin reuptake inhibitor) causing adverse effect in therapeutic use Discharge - Sign-Out/Discharge Documenting (check all that apply): Patient Departure All imaging exams completed and their final reports reviewed: No Studies - Discharge Plan Condition: Good Disposition: HOME Forms: *Work Release Referrals: Chen Cisneros PA [Primary Care Provider] - Additional Instructions: Your pcp's office will be calling you or you can continue to call them at the on -call service: [phone] - Billing Disposition and Condition Condition: GOOD Disposition: Home
== END 2019-01-20 12:26 | disposition home or self-care (01) ==
LOC: UCEAST 11:18
DX: F41.9 Anxiety disorder, unspecified (principal); T43.225A Adverse effect of selective serotonin reuptake inhibitors, initial encounter; Z88.1 Allergy status to other antibiotic agents; Z88.8 Allergy status to other drugs, medicaments and biological substances; Y92.9 Unspecified place or not applicable
CPT/HCPCS: 99211; G0463

== ENCOUNTER 2019-03-28 11:22 | Emergency (ER) | payer OTHER ==
[2019-03-28 11:52] VITALS: BP 147/97
--- NOTE | 2019-03-28 12:48 | UC ---
Throat Pain/Nasal Aaron HPI - HPI Summary HPI Summary: Sore throat over the past 2 days, no fever. - History of Current Complaint Chief Complaint: UCGeneralIllness Stated Complaint: SORE THROAT Time Seen by Provider: 03/28/19 12:40 Hx Obtained From: Patient Hx Last Menstrual Period: 03/24/19 ?: No Onset/Duration: Gradual Onset Severity: Mild Pain Intensity: 0 Cough: None Associated Signs & Symptoms: Positive: Negative - Allergies/Home Medications Allergies/Adverse Reactions: Allergies Allergy/AdvReac Type Severity Reaction Status Date / Time azithromycin [From Zithromax] Allergy Vomiting Verified 03/28/19 11:52 erythromycin base Allergy Vomiting Verified 03/28/19 11:52 metoprolol Allergy Abdominal Verified 03/28/19 11:52 Pain PMH/Surg Hx/FS Hx/Imm Hx Previously Healthy: Yes Cardiovascular History: Hypertension - Surgical History Surgical History: Yes Surgery Procedure, Year, and Place: - Family History Known Family History: Positive: Hypertension Negative: Cardiac Disease, Diabetes - Social History Occupation: Employed Full-time Alcohol Use: Rare Substance Use Type: None Smoking Status (MU): Never Smoked Tobacco Have You Smoked in the Last Year: No - Immunization History Hx Tetanus, Diphtheria Vaccination: Yes Vaccination Up to Date: Yes Review of Systems All Other Systems Reviewed And Are Negative: Yes ENT: Positive: Sore Throat Is Patient Immunocompromised?: No Physical Exam Triage Information Reviewed: Yes Appearance: Well-Appearing, No Pain Distress, Well-Nourished Vital Signs: Initial Vital Signs Temp 98.4 F 03/28/19 11:48 Pulse 84 03/28/19 11:48 Resp 18 03/28/19 11:48 BP 147/97 03/28/19 11:48 Pulse Ox 99 03/28/19 11:48 Vital Signs Reviewed: Yes Eyes: Positive: Conjunctiva Clear ENT: Positive: Hearing grossly normal, Pharynx normal, TMs normal, Uvula midline. Negative: Tonsillar swelling, Tonsillar exudate, Trismus, Muffled voice, Hoarse voice Neck: Positive: Supple, Nontender, No Lymphadenopathy Respiratory: Positive: Lungs clear, Normal breath sounds, No respiratory distress, No accessory muscle use Cardiovascular: Positive: RRR, No Murmur, Pulses Normal, Brisk Capillary Refill Abdomen Description: Positive: Nontender, No Organomegaly, Soft Bowel Sounds: Positive: Present Musculoskeletal Exam: Normal Neurological Exam: Normal Psychological Exam: Normal Skin Exam: Normal Throat Pain/Nasal Course/Dx - Course Course Of Treatment: Rapid strep test was negative. Patient can do warm saltwater gargles, throat lozenges to get rechecked in 4-5 days if no improvement. - Differential Dx/Diagnosis Provider Diagnosis: Pharyngitis Discharge - Sign-Out/Discharge Documenting (check all that apply): Patient Departure All imaging exams completed and their final reports reviewed: No Studies - Discharge Plan Condition: Fair Disposition: HOME Patient Education Materials: Pharyngitis (ED) Referrals: Chen Cisneros PA [Primary Care Provider] - Additional Instructions: Increase fluids, warm saltwater gargles, throat lozenges, Motrin every 8 hours for pain. Follow-up with your primary care provider in 4 or 5 days if no improvement or if worsening symptoms. - Billing Disposition and Condition Condition: FAIR Disposition: Home - Attestation Statements Provider Attestation: I was available for consult. This patient was seen by the AMOL. The patient was not presented to, seen by, or examined by me. -Kelvin
== END 2019-03-28 12:52 | disposition home or self-care (01) ==
LOC: UCEAST 11:22
DX: J02.9 Acute pharyngitis, unspecified (principal); I10 Essential (primary) hypertension; Z88.1 Allergy status to other antibiotic agents; Z88.8 Allergy status to other drugs, medicaments and biological substances
CPT/HCPCS: 87651; 99211; G0463